=== PATIENT | male | born 2000 | race Hispanic/Latino ===

== ENCOUNTER 2023-02-28 11:35 | Emergency (ER) | payer SELFPAY ==
[2023-02-28] MEDS ORDERED: Sodium Chloride 0.9% 1000 ML 1,000 ML ONE ×2 (12:23→13:36)
[2023-02-28] MEDS: Sodium Chloride 0.9% 1000 ML 1,000 ML IV STA ×2 (12:26→13:38)
[2023-02-28 12:45] LABS: Absolute Neutrophil Ct (ANC) 4.78 x10^3/uL (1.4-6.9); BASOPHIL % 0.9 % (0.0-0.4); Basophil (Absolute #) 0.07 x10^3/uL (0-0.4); Eosinophil % 2.6 % (0.00-5.0); Eosinophil (Absolute #) 0.21 x10^3/uL (0-0.5); Hematocrit 44.3 % (42-50); Hemoglobin 15.1 g/dL (12.5-18.0); IMMATURE GRAN # 0.04 x10^3u/L (0.00-0.03); IMMATURE GRAN % 0.5 % (0.00-0.4); Lymphocyte (Absolute #) 2.37 x10^3/uL (1.0-4.6); Lymphocytes % 29.4 % (24.0-44.0); Mean Cell Volume 81.7 fL (78-100); Mean Corpuscular Hemoglobin 27.9 pg (26-32); Mean Corpuscular Hgb Concent. 34.1 g/dL (32-36); Mean Platelet Volume 10.9 fL (7.5-11.0); Monocyte (Absolute #) 0.59 x10^3/uL (0.0-1.3); Monocytes % 7.3 % (0.0-12.0); Neutrophil % 59.3 % (36.0-66.0); Platelet Count 238 x10^3/uL (150-450); Red Blood Count 5.42 x10^6/uL (4.1-5.6); Red Cell Distribution Width 13.4 % (11.5-14.0); White Blood Count 8.1 x10^3/uL (4.0-10.5)
[2023-02-28 12:51] LABS: Appearance Clear (Clear); Bacteria None Seen /HPF (None Seen); Bilirubin Negative (Negative); Blood Negative (Negative); Epithelial Cells None Seen /HPF (None Seen); Glucose, Urine >=1000 mg/dL (Negative); Hyaline Casts NONE SEEN /LPF (0-2); Ketones 40 (Negative); Leukocyte Esterase Negative (Negative); Nitrite Negative (Negative); Ph 5.5 (4.6-8.0); Protein,Urine Dip 30 (Negative); RBC 0-2 /HPF (0-5); Specific Gravity >=1.030 (1.005-1.030); Urobilinogen 0.2 mg/dL (0.2)
[2023-02-28 12:58] LABS: ALBUMIN 4.7 g/dL (3.5-5.0); ALKALINE PHOSPHATASE 197 U/L (38-126); ANION GAP 16.3 MEQ/L (5-15); BLOOD UREA NITROGEN 9 mg/dL (9-20); CHLORIDE 97 mmol/L (98-107); Calcium 9.6 mg/dL (8.4-10.2); Carbon Dioxide 29 mmol/L (22-30); Creatinine 1 0.77 mg/dL (0.66-1.25); EST GLOMERULAR FILTRATION RATE > 60.0 ML/MIN; Glucose 370 mg/dL (74-106); Potassium 4.1 mmol/L (3.5-5.1); SGOT/AST 164 U/L (17-59); SGPT/ALT 350 U/L (0-50); SODIUM 138 mmol/L (137-145); Total Protein 8.2 g/dL (6.3-8.2)
[2023-02-28 13:13] LABS: ADD URINE CULTURE? NO (NO)
[2023-02-28 13:32] VITALS: RESP 20; O2SAT 98
--- NOTE | 2023-02-28 14:20 | ERPHSYRPT ---
- History of Present Illness Time Seen by Provider: 02/28/23 14:14 Source: patient Exam Limitations: no limitations Patient Subjective Stated Complaint: Pt states "I am peeing allot, my vision is blurry, I am tired and I am thirsty." Triage Nursing Assessment: Pt presnted alert and oriented X 3, skin pwd. Pt ambulates with an upright steady gait, able to speak in clear full sentences pt in no apaprent respiratory distress. Physician History: Patient is a 22-year-old male presents to our ED accompanied by a friend for evaluation of slightly blurred vision polyuria and polydipsia. Patient states he is from [place]. He speaks primarily Swiss. He does not understand or speak Pashto. Patient states symptoms started 2 week ago. Symptoms have been constant. Symptoms are moderate in intensity. No specific worsening or improving factors. Patient denies pain. Patient states he believes he is diabetic. He has never been officially diagnosed however. Patient voices no other complaints or concerns at this time. Portions of this note were created with voice recognition technology. There may be grammatical, spelling, punctuation or sound alike errors Timing/Duration: week(s) Severity: mild Modifying Factors: Improves With: nothing Associated Symptoms: denies symptoms Allergies/Adverse Reactions: No Known Drug Allergies Allergy (Verified 02/28/23 12:10) Hx Tetanus, Diphtheria Vaccination/Date Given: No Hx Influenza Vaccination/Date Given: No Hx Pneumococcal Vaccination/Date Given: No Immunizations Up to Date: No Travel Risk - International Travel Have you traveled outside of the country in past 3 weeks: No - Coronavirus Screening Are you exhibiting any of the following symptoms?: No Close contact with a COVID-19 positive Pt in past 14-21 Days: No - Vaccine Status Have you recieved a Covid-19 vaccination: No - Review of Systems Constitutional: No Symptoms, No Fever, No Chills Eyes: No Symptoms Ears, Nose, & Throat: No Symptoms Respiratory: No Symptoms, No Cough, No Dyspnea Cardiac: No Symptoms, No Chest Pain, No Edema, No Syncope Abdominal/Gastrointestinal: No Symptoms, No Abdominal Pain, No Nausea, No Vomiting, No Diarrhea Genitourinary Symptoms: No Symptoms, No Dysuria Musculoskeletal: No Symptoms, No Back Pain, No Neck Pain Skin: No Symptoms, No Rash Neurological: No Symptoms, No Dizziness, No Focal Weakness, No Sensory Changes Psychological: No Symptoms Endocrine: No Symptoms Hematologic/Lymphatic: No Symptoms Immunological/Allergic: No Symptoms All Other Systems: Reviewed and Negative - Past Medical History Pertinent Past Medical History: No - Past Surgical History Past Surgical History: No - Social History Smoking Status: Current every day smoker How long have you smoked: 2 years Exposure to second hand smoke: Yes Drug Use: none Patient Lives Alone: No - Nursing Vital Signs Nursing Vital Signs: Initial Vital Signs Temperature 97.2 F 02/28/23 12:04 Pulse Rate 60 02/28/23 12:04 Respiratory Rate 22 02/28/23 12:04 Blood Pressure 142/97 02/28/23 12:04 O2 Sat by Pulse Oximetry 96 02/28/23 12:04 Pain Scale Pain Intensity 0 - Physical Exam General Appearance: no apparent distress, alert Eye Exam: PERRL/EOMI, eyes nml inspection Ears, Nose, Throat Exam: normal ENT inspection, TMs normal, pharynx normal, moist mucous membranes Neck Exam: normal inspection, non-tender, supple, full range of motion Respiratory Exam: normal breath sounds, lungs clear, No respiratory distress Cardiovascular Exam: regular rate/rhythm, normal heart sounds, normal peripheral pulses Gastrointestinal/Abdomen Exam: soft, normal bowel sounds, No tenderness, No mass Back Exam: normal inspection, normal range of motion, No CVA tenderness, No vertebral tenderness Extremity Exam: normal inspection, normal range of motion, pelvis stable Neurologic Exam: alert, oriented x 3, cooperative, normal mood/affect, nml cerebellar function, nml station & gait, sensation nml, No motor deficits Skin Exam: normal color, warm, dry, No rash Lymphatic Exam: No adenopathy SpO2 Interpretation: normal SpO2: 98 O2 Delivery: Room Air - Course Nursing assessment & vital signs reviewed: Yes Ordered Tests: Active Orders 24 hr Category Date Time Status Oyster 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 STAT Care 02/28/23 12:19 Active IV Insertion STAT Care 02/28/23 12:18 Active Pulse Oximetry (ED) STAT Care 02/28/23 12:18 Active CBC W DIFF Stat Lab 02/28/23 12:40 Completed CMP Stat Lab 02/28/23 12:40 Completed CMP Stat Lab 02/28/23 15:04 Completed LIPASE Stat Lab 02/28/23 12:40 Completed POCT GLUCOSE Stat Lab 02/28/23 12:07 Completed POCT GLUCOSE Stat Lab 02/28/23 14:47 Completed TROPONIN Q4H Lab 02/28/23 12:40 Completed TROPONIN Q4H Lab 02/28/23 16:30 Ordered TROPONIN Q4H Lab 02/28/23 20:30 Ordered UA W/RFX UR CULTURE Stat Lab 02/28/23 12:20 Completed VBG [VENOUS BLOOD GAS] Stat Lab 02/28/23 12:40 Completed Medication Summary Discontinued Medications Generic Name Dose Route Start Last Admin Trade Name Lisa PRN Reason Stop Dose Admin Sodium Chloride 1,000 mls @ 999 mls/hr 02/28/23 12:18 02/28/23 13:29 Sodium Chloride 0.9% 1000 Ml IV 02/28/23 13:18 Infused .Q1H1M STA Infusion Sodium Chloride Confirm 02/28/23 12:23 Sodium Chloride 0.9% 1000 Ml Administered 02/28/23 12:24 Dose 1,000 mls @ ud .ROUTE .STK-MED ONE Sodium Chloride 1,000 mls @ 999 mls/hr 02/28/23 13:35 02/28/23 14:46 Sodium Chloride 0.9% 1000 Ml IV 02/28/23 14:35 Infused .Q1H1M STA Infusion Sodium Chloride Confirm 02/28/23 13:36 Sodium Chloride 0.9% 1000 Ml Administered 02/28/23 13:37 Dose 1,000 mls @ ud .ROUTE .STK-MED ONE Lab/Rad Data: Laboratory Result Diagrams 02/28/23 12:40 02/28/23 15:04 Laboratory Results 02/28/23 02/28/23 02/28/23 Range/Units 15:04 14:47 12:40 WBC (4.0-10.5) x10^3/uL RBC (4.1-5.6) x10^6/uL Hgb (12.5-18.0) g/dL Hct (42-50) % MCV (78-100) fL MCH (26-32) pg MCHC (32-36) g/dL RDW (11.5-14.0) % Plt Count (150-450) x10^3/uL MPV (7.5-11.0) fL Gran % (36.0-66.0) % Immature Gran % (Auto) (0.00-0.4) % Nucleat RBC Rel Count (0.00-0.1) % Eos # (Auto) (0-0.5) x10^3/uL Immature Gran # (Auto) (0.00-0.03) x10^3u/L Absolute Lymphs (auto) (1.0-4.6) x10^3/uL Absolute Monos (auto) (0.0-1.3) x10^3/uL Absolute Nucleated RBC (0.00-0.01) x10^3u/L Lymphocytes % (24.0-44.0) % Monocytes % (0.0-12.0) % Eosinophils % (0.00-5.0) % Basophils % (0.0-0.4) % Absolute Granulocytes (1.4-6.9) x10^3/uL Basophils # (0-0.4) x10^3/uL pO2/FiO2 Ratio 21.0 % VBG pH 7.41 (7.32-7.42) VBG pCO2 at Pat Temp 55 (42-55) mm/Hg VBG pO2 at Pat Temp 28 (25-40) mm/Hg VBG HCO3 34.9 H* (22-28) meq/L VBG O2 Sat (Marcial) 37.5 L (95-100) VBG Base Excess 8.1 H (-2.0-2.0) VBG Hemoglobin 15.7 VBG Carboxyhemoglobin 1.4 (0.0-6.9) % T HGB POC Potassium 5.1 (3.5-5.1) Sodium 137 (137-145) mmol/L Potassium 4.0 (3.5-5.1) mmol/L Chloride 103 (98-107) mmol/L Carbon Dioxide 23 (22-30) mmol/L Anion Gap 14.9 (5-15) MEQ/L BUN 8 L (9-20) mg/dL Creatinine 0.70 (0.66-1.25) mg/dL Estimated GFR > 60.0 ML/MIN Glucose 278 H (74-106) mg/dL POC Glucometer 247 H (74 to 106) mg/dL Calcium 8.4 (8.4-10.2) mg/dL Total Bilirubin 1.30 (0.2-1.3) mg/dL AST 191 H (17-59) U/L ALT 335 H (0-50) U/L Alkaline Phosphatase 163 H (38-126) U/L Troponin I (0.000-0.034) ng/mL Serum Total Protein 7.3 (6.3-8.2) g/dL Albumin 4.2 (3.5-5.0) g/dL Lipase (23-300) U/L Urine Color (Yellow) Urine Appearance (Clear) Urine pH (4.6-8.0) Ur Specific Thurston (1.005-1.030) Urine Protein (Negative) Urine Glucose (UA) (Negative) mg/dL Urine Ketones (Negative) Urine Blood (Negative) Urine Nitrite (Negative) Urine Bilirubin (Negative) Urine Urobilinogen (0.2) mg/dL Ur Leukocyte Esterase (Negative) U Hyaline Cast (Auto) (0-2) /LPF Urine Microscopic RBC (0-5) /HPF Urine Microscopic WBC (0-5) /HPF Ur Epithelial Cells (None Seen) /HPF Urine Bacteria (None Seen) /HPF Urine Culture Reflexed (NO) 02/28/23 02/28/23 02/28/23 Range/Units 12:40 12:40 12:40 WBC (4.0-10.5) x10^3/uL RBC (4.1-5.6) x10^6/uL Hgb (12.5-18.0) g/dL Hct (42-50) % MCV (78-100) fL MCH (26-32) pg MCHC (32-36) g/dL RDW (11.5-14.0) % Plt Count (150-450) x10^3/uL MPV (7.5-11.0) fL Gran % (36.0-66.0) % Immature Gran % (Auto) (0.00-0.4) % Nucleat RBC Rel Count (0.00-0.1) % Eos # (Auto) (0-0.5) x10^3/uL Immature Gran # (Auto) (0.00-0.03) x10^3u/L Absolute Lymphs (auto) (1.0-4.6) x10^3/uL Absolute Monos (auto) (0.0-1.3) x10^3/uL Absolute Nucleated RBC (0.00-0.01) x10^3u/L Lymphocytes % (24.0-44.0) % Monocytes % (0.0-12.0) % Eosinophils % (0.00-5.0) % Basophils % (0.0-0.4) % Absolute Granulocytes (1.4-6.9) x10^3/uL Basophils # (0-0.4) x10^3/uL pO2/FiO2 Ratio % VBG pH (7.32-7.42) VBG pCO2 at Pat Temp (42-55) mm/Hg VBG pO2 at Pat Temp (25-40) mm/Hg VBG HCO3 (22-28) meq/L VBG O2 Sat (Marcial) (95-100) VBG Base Excess (-2.0-2.0) VBG Hemoglobin VBG Carboxyhemoglobin (0.0-6.9) % T HGB POC Potassium (3.5-5.1) Sodium 138 (137-145) mmol/L Potassium 4.1 (3.5-5.1) mmol/L Chloride 97 L (98-107) mmol/L Carbon Dioxide 29 (22-30) mmol/L Anion Gap 16.3 H (5-15) MEQ/L BUN 9 (9-20) mg/dL Creatinine 0.77 (0.66-1.25) mg/dL Estimated GFR > 60.0 ML/MIN Glucose 370 H (74-106) mg/dL POC Glucometer (74 to 106) mg/dL Calcium 9.6 (8.4-10.2) mg/dL Total Bilirubin 1.30 (0.2-1.3) mg/dL AST 164 H (17-59) U/L ALT 350 H (0-50) U/L Alkaline Phosphatase 197 H (38-126) U/L Troponin I < 0.012 (0.000-0.034) ng/mL Serum Total Protein 8.2 (6.3-8.2) g/dL Albumin 4.7 (3.5-5.0) g/dL Lipase 52 (23-300) U/L Urine Color (Yellow) Urine Appearance (Clear) Urine pH (4.6-8.0) Ur Specific Thurston (1.005-1.030) Urine Protein (Negative) Urine Glucose (UA) (Negative) mg/dL Urine Ketones (Negative) Urine Blood (Negative) Urine Nitrite (Negative) Urine Bilirubin (Negative) Urine Urobilinogen (0.2) mg/dL Ur Leukocyte Esterase (Negative) U Hyaline Cast (Auto) (0-2) /LPF Urine Microscopic RBC (0-5) /HPF Urine Microscopic WBC (0-5) /HPF Ur Epithelial Cells (None Seen) /HPF Urine Bacteria (None Seen) /HPF Urine Culture Reflexed (NO) 02/28/23 02/28/23 02/28/23 Range/Units 12:40 12:20 12:07 WBC 8.1 (4.0-10.5) x10^3/uL RBC 5.42 (4.1-5.6) x10^6/uL Hgb 15.1 (12.5-18.0) g/dL Hct 44.3 (42-50) % MCV 81.7 (78-100) fL MCH 27.9 (26-32) pg MCHC 34.1 (32-36) g/dL RDW 13.4 (11.5-14.0) % Plt Count 238 (150-450) x10^3/uL MPV 10.9 (7.5-11.0) fL Gran % 59.3 (36.0-66.0) % Immature Gran % (Auto) 0.5 H (0.00-0.4) % Nucleat RBC Rel Count 0.0 (0.00-0.1) % Eos # (Auto) 0.21 (0-0.5) x10^3/uL Immature Gran # (Auto) 0.04 H (0.00-0.03) x10^3u/L Absolute Lymphs (auto) 2.37 (1.0-4.6) x10^3/uL Absolute Monos (auto) 0.59 (0.0-1.3) x10^3/uL Absolute Nucleated RBC 0.00 (0.00-0.01) x10^3u/L Lymphocytes % 29.4 (24.0-44.0) % Monocytes % 7.3 (0.0-12.0) % Eosinophils % 2.6 (0.00-5.0) % Basophils % 0.9 (0.0-0.4) % Absolute Granulocytes 4.78 (1.4-6.9) x10^3/uL Basophils # 0.07 (0-0.4) x10^3/uL pO2/FiO2 Ratio % VBG pH (7.32-7.42) VBG pCO2 at Pat Temp (42-55) mm/Hg VBG pO2 at Pat Temp (25-40) mm/Hg VBG HCO3 (22-28) meq/L VBG O2 Sat (Marcial) (95-100) VBG Base Excess (-2.0-2.0) VBG Hemoglobin VBG Carboxyhemoglobin (0.0-6.9) % T HGB POC Potassium (3.5-5.1) Sodium (137-145) mmol/L Potassium (3.5-5.1) mmol/L Chloride (98-107) mmol/L Carbon Dioxide (22-30) mmol/L Anion Gap (5-15) MEQ/L BUN (9-20) mg/dL Creatinine (0.66-1.25) mg/dL Estimated GFR ML/MIN Glucose (74-106) mg/dL POC Glucometer 325 H (74 to 106) mg/dL Calcium (8.4-10.2) mg/dL Total Bilirubin (0.2-1.3) mg/dL AST (17-59) U/L ALT (0-50) U/L Alkaline Phosphatase (38-126) U/L Troponin I (0.000-0.034) ng/mL Serum Total Protein (6.3-8.2) g/dL Albumin (3.5-5.0) g/dL Lipase (23-300) U/L Urine Color Yellow (Yellow) Urine Appearance Clear (Clear) Urine pH 5.5 (4.6-8.0) Ur Specific Thurston >=1.030 A (1.005-1.030) Urine Protein 30 (Negative) Urine Glucose (UA) >=1000 A (Negative) mg/dL Urine Ketones 40 A (Negative) Urine Blood Negative (Negative) Urine Nitrite Negative (Negative) Urine Bilirubin Negative (Negative) Urine Urobilinogen 0.2 (0.2) mg/dL Ur Leukocyte Esterase Negative (Negative) U Hyaline Cast (Auto) NONE SEEN (0-2) /LPF Urine Microscopic RBC 0-2 (0-5) /HPF Urine Microscopic WBC 3-5 (0-5) /HPF Ur Epithelial Cells None Seen (None Seen) /HPF Urine Bacteria None Seen (None Seen) /HPF Urine Culture Reflexed NO (NO) - Progress Progress: improved Progress Note: Patient is a 22-year-old male presents to our ED for evaluation of polyuria polydipsia and slight blurred vision. Symptoms have been ongoing for approximately 2 weeks. Patient states he is from [place]. Patient speaks primarily Swiss. Dr. Brito is fluent in Swiss. Test ordered include CBC, CMP lipase. Troponin UA VBG. Glucose initially 325. After 2 L fluid glucose down to 247. Patient asymptomatic. Mild elevated liver enzymes. Normal pH. Patient received 2 L normal saline and a dose of metformin in our ED. A prescription for metformin for the patient's pharmacy. Patient to take 500 mg daily at least until he sees his primary care doctor. Patient given referral to Dr. Larsen. Patient states he ready for discharge. Portions of this note were created with voice recognition technology. There may be grammatical, spelling, punctuation or sound alike errors Complexity of problems addressed as moderate acute complicated Complex data reviewed and analyzed is moderate. Test ordered. Test reviewed and analyzed. Clinical correlation made between results and history and physical exam. Patient received 2 L normal saline. Glucose decreased. Patient given a dose of metformin in our ED. A prescription for the same was forwarded to patient's pharmacy. Anion gap resolved after 2 L normal saline. Risk of complication and or risk morbidity/mortality of patient management is moderate. Patient received prescription for metformin. Patient given referral to primary care doctor. Portions of this note were created with voice recognition technology. There may be grammatical, spelling, punctuation or sound alike errors No social determinants of health present to impede follow-up. Patient stable. Vitals within normal limits. Plan of care established for shared decision making. Patient voices no other complaints or concerns at this time. Patient educated on diet and the importance of follow-up. 02/28/23 15:45 02/28/23 15:56 Counseled pt/family regarding: lab results, diagnosis, need for follow-up - Departure Departure Disposition: Home Clinical Impression: Hyperglycemia, Glucosuria, Dehydration, Transaminitis, Elevated alkaline phosphatase level Condition: Stable Critical Care Time: No Referrals: DOCTOR,NO FAMILY [Primary Care Provider] - Follow up/PCP as directed PHILLIP LARSEN MD [ACTIVE STAFF] - Follow up/PCP as directed Additional Instructions: Discharge/Care Plan RONI RIVERA was seen on 02/28/23 in the Emergency Room. The patient was counseled regarding Diagnosis,Lab results, Imaging studies, need for follow up and when to return to the Emergency Room. Prescriptions given: Discharge Note I have spoken with the patient and/or caregivers. I have explained the patient's condition, diagnosis and treatment plan based on the information available to me at this time. I have answered the patient's and/or caregiver's questions and addressed any concerns. The patient and/or caregivers have as good understanding of the patient's diagnosis, condition and treatment plan as can be expected at this point. The vital signs have been stable. The patient's condition is stable and appropriate for discharge from the emergency department. The patient will pursue further outpatient evaluation with the primary care physician or other designated or consulting physician as outlined in the discharge instructions. The patient and/or caregivers are agreeable to this plan of care and follow-up instructions have been explained in detail. The patient and/or caregivers have received these instruction. The patient/and or caregivers are aware that any significant change in condition or worsening of symptoms should prompt an immediate return to this or the closest emergency department or call 911. Prescriptions: Metformin HCl 500 mg [Glucophage 500 MG] 500 mg PO DAILY 7 Days #7 tablet
[2023-02-28 14:31] LABS: VBG BASE EXCESS 8.1 (-2.0-2.0); VBG CARBOXYHEMOGLOBIN 1.4 % T HGB (0.0-6.9); VBG HCO3- 34.9 meq/L (22-28); VBG HEMOGLOBIN 15.7; VBG O2 SATURATION 37.5 (95-100); VBG POTASSIUM 5.1 (3.5-5.1); VBG pH 7.41 (7.32-7.42)
[2023-02-28 15:19] LABS: ALBUMIN 4.2 g/dL (3.5-5.0); ALKALINE PHOSPHATASE 163 U/L (38-126); ANION GAP 14.9 MEQ/L (5-15); BLOOD UREA NITROGEN 8 mg/dL (9-20); CHLORIDE 103 mmol/L (98-107); Calcium 8.4 mg/dL (8.4-10.2); Carbon Dioxide 23 mmol/L (22-30); EST GLOMERULAR FILTRATION RATE > 60.0 ML/MIN; Glucose 278 mg/dL (74-106); SGOT/AST 191 U/L (17-59); SGPT/ALT 335 U/L (0-50); SODIUM 137 mmol/L (137-145); Total Protein 7.3 g/dL (6.3-8.2)
[2023-02-28] MEDS: Glucophage 500 MG PO STA (15:52)
[2023-02-28 16:11] VITALS: BP 134/82; PULSE 98; TEMP 97.4
== END 2023-02-28 16:10 | disposition home or self-care (01) ==
LOC: ED 11:35
DX: R73.9 Hyperglycemia, unspecified (principal); R81 Glycosuria; E86.0 Dehydration; R74.01 Elevation of levels of liver transaminase levels; R74.8 Abnormal levels of other serum enzymes; R35.89 Other polyuria; R63.1 Polydipsia; H53.8 Other visual disturbances; Z28.310 Unvaccinated for COVID-19; Z72.0 Tobacco use
CPT/HCPCS: 36000; 36415; 80053; 81001; 82805; 82947; 83690; 84484; 85025; 94760; 96360; 96361; 99284; A9270-GY

== ENCOUNTER 2023-10-13 10:32 | Observation (INO) | payer SELFPAY ==
--- NOTE | 2023-10-13 10:53 | ERPHSYRPT ---
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 He is noncompliant with food and his medication. Patient is a daily smoker cigarettes. Yesterday, he began noticing some dizziness and weakness and has been drinking lots of water. His symptoms were worse this morning. He does not have a headache. He does not have chest pain. He does not have shortness of breath. He does not have abdominal pain. He has had no nausea vomiting or diarrhea symptoms. Severity: moderate Character of Deficits: none Deficits: no difficulties Baseline/Normal Cognition: alert oriented x 3 Current Cognition: alert oriented x 3 Baseline Gait: walks w/o assistance Associated Symptoms: weakness, other Allergies/Adverse Reactions: No Known Drug Allergies Allergy (Verified 10/13/23 10:50) Home Medications: No Reportable Medications [No Reported Medications] 10/13/23 [History] Hx Tetanus, Diphtheria Vaccination/Date Given: No Hx Influenza Vaccination/Date Given: No Hx Pneumococcal Vaccination/Date Given: No Travel Risk - International Travel Have you traveled outside of the country in past 3 weeks: No (Intermittent dizziness) - Emerging Infectious Disease Are you exhibiting symptoms associated with any current EIDs: No - Vaccine Status Hx Covid Vaccintation/Booster/Date Given: No - Review of Systems Constitutional: Weakness Eyes: No Symptoms Ears, Nose, & Throat: No Symptoms Respiratory: No Symptoms Cardiac: No Symptoms Abdominal/Gastrointestinal: No Symptoms Genitourinary Symptoms: No Symptoms Musculoskeletal: No Symptoms Skin: No Symptoms Neurological: Dizziness Psychological: No Symptoms Endocrine: No Symptoms Hematologic/Lymphatic: No Symptoms Immunological/Allergic: No Symptoms All Other Systems: Reviewed and Negative - Past Medical History Pertinent Past Medical History: No - Past Surgical History Past Surgical History: No - Social History Smoking Status: Current every day smoker How long have you smoked: 2 years Exposure to second hand smoke: Yes Drug Use: none Patient Lives Alone: No - Nursing Vital Signs Nursing Vital Signs: Initial Vital Signs Temperature 97.6 F 10/13/23 10:52 Pulse Rate 86 10/13/23 10:52 Respiratory Rate 20 10/13/23 10:52 Blood Pressure 153/72 10/13/23 10:52 O2 Sat by Pulse Oximetry 98 10/13/23 10:52 Pain Scale Pain Intensity 0 - Deuce Coma Scale Best Eye Response ([place]): (4) open spontaneously Best Verbal Response (Deuce): (5) oriented Best Motor Response ([place]): (6) obeys commands Deuce Total: 15 - Physical Exam General Appearance: no apparent distress, alert Eye Exam: bilateral eye: normal inspection, PERRL, EOMI Ears, Nose, Throat Exam: dry mucous membranes Neck Exam: normal inspection, non-tender, supple, full range of motion Respiratory: normal breath sounds, lungs clear, airway intact, No chest tenderness, No respiratory distress Cardiovascular: regular rate/rhythm, normal heart sounds, normal peripheral pulses Gastrointestinal: soft, normal bowel sounds, No tenderness Rectal Exam: not done Back Exam: normal inspection, normal range of motion, No CVA tenderness, No vertebral tenderness Extremity Exam: normal inspection, normal range of motion, pelvis stable Mental Status: alert, oriented x 3, 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 No comparison twelve-lead EKG available.) Ordered Tests: Active Orders 24 hr Category Date Time Status EKG-ER Only STAT Care 10/13/23 11:20 Active IV Insertion STAT Care 10/13/23 11:20 Active IV Insertion-2nd Peripheral STAT Care 10/13/23 12:34 Active POCT Glucose Check STAT Care 10/13/23 13:40 Active Pulse Oximetry (ED) STAT Care 10/13/23 11:20 Active CBC W DIFF Stat Lab 10/13/23 11:18 Completed CMP Stat Lab 10/13/23 11:18 Completed CMP Stat Lab 10/13/23 17:20 Completed CULTURE,URINE Stat Lab 10/13/23 11:29 Received CULTURE,URINE Stat Lab 10/13/23 16:30 Received ETHYL ALCOHOL Stat Lab 10/13/23 11:18 Completed Lactic Acid Urgent Lab 10/13/23 11:35 Completed MAGNESIUM Stat Lab 10/13/23 11:18 Completed POCT GLUCOSE Stat Lab 10/13/23 10:57 Completed POCT GLUCOSE Stat Lab 10/13/23 13:38 Completed POCT GLUCOSE Stat Lab 10/13/23 14:55 Completed UA W/RFX UR CULTURE Stat Lab 10/13/23 11:29 Completed UA W/RFX UR CULTURE Stat Lab 10/13/23 16:30 Completed UA W/RFX UR CULTURE Stat Lab 10/13/23 17:19 Completed VBG [VENOUS BLOOD GAS] Stat Lab 10/13/23 11:56 Completed VENOUS BLOOD GAS Stat Lab 10/13/23 15:05 Completed Transfer Order Routine Transfer 10/13/23 Ordered Medication Summary Discontinued Medications Generic Name Dose Route Start Last Admin Trade Name Freq PRN Reason Stop Dose Admin Sodium Chloride 1,000 mls @ 999 mls/hr 10/13/23 11:20 10/13/23 12:33 Sodium Chloride 0.9% 1000 Ml IV 10/13/23 12:20 Infused .Q1H1M STA Infusion Sodium Chloride Confirm 10/13/23 11:30 Sodium Chloride 0.9% 1000 Ml Administered 10/13/23 11:31 Dose 1,000 mls @ ud .ROUTE .STK-MED ONE Lactated Ringer's 1,000 mls @ 999 mls/hr 10/13/23 12:28 10/13/23 13:42 Lactated Ringers IV 10/13/23 13:28 Infused .Q1H1M ONE Infusion Lactated Ringer's Confirm 10/13/23 12:36 Lactated Ringers Administered 10/13/23 12:37 Dose 1,000 mls @ ud IV .STK-MED ONE Sodium Chloride 1,000 mls @ 999 mls/hr 10/13/23 13:40 10/13/23 14:56 Sodium Chloride 0.9% 1000 Ml IV 10/13/23 14:40 Infused .Q1H1M STA Infusion Sodium Chloride Confirm 10/13/23 13:54 Sodium Chloride 0.9% 1000 Ml Administered 10/13/23 13:55 Dose 1,000 mls @ ud .ROUTE .STK-MED ONE Lactated Ringer's 500 mls @ 500 mls/hr 10/13/23 15:47 10/13/23 17:01 Lactated Ringers IV 10/13/23 16:46 Infused .Q1H ONE Infusion Lactated Ringer's Confirm 10/13/23 15:51 Lactated Ringers Administered 10/13/23 15:52 Dose 1,000 mls @ ud IV .STK-MED ONE Insulin Human Regular 4 unit 10/13/23 11:57 10/13/23 12:03 Insulin Regular, Human 1 Unit IV 10/13/23 11:58 4 unit STAT ONE Administration Insulin Human Regular Confirm 10/13/23 12:00 Insulin Regular, Human 1 Unit Administered 10/13/23 12:01 Dose 4 unit .ROUTE .STK-MED ONE Sodium Bicarbonate 50 meq 10/13/23 12:15 10/13/23 12:39 Sodium Bicarbonate 1 Meq/Ml 50ml Syringe IV 10/13/23 12:16 50 meq STAT ONE Administration Sodium Bicarbonate Confirm 10/13/23 12:36 Sodium Bicarbonate 1 Meq/Ml 50ml Syringe Administered 10/13/23 12:37 Dose 50 meq IV .STK-MED ONE Lab/Rad Data: Laboratory Result Diagrams 10/13/23 11:18 10/13/23 17:20 Laboratory Results 10/13/23 10/13/23 10/13/23 Range/Units 17:20 17:19 16:30 WBC (4.0-10.5) x10^3/uL RBC (4.1-5.6) x10^6/uL Hgb (12.5-18.0) g/dL Hct (42-50) % MCV (78-100) fL MCH (26-32) pg MCHC (32-36) g/dL RDW (11.5-14.0) % Plt Count (150-450) x10^3/uL MPV (7.5-11.0) fL Gran % (36.0-66.0) % Immature Gran % (Auto) (0.00-0.4) % Nucleat RBC Rel Count (0.00-0.1) % Eos # (Auto) (0-0.5) x10^3/uL Immature Gran # (Auto) (0.00-0.03) x10^3u/L Absolute Lymphs (auto) (1.0-4.6) x10^3/uL Absolute Monos (auto) (0.0-1.3) x10^3/uL Absolute Nucleated RBC (0.00-0.01) x10^3u/L Lymphocytes % (24.0-44.0) % Monocytes % (0.0-12.0) % Eosinophils % (0.00-5.0) % Basophils % (0.0-0.4) % Absolute Granulocytes (1.4-6.9) x10^3/uL Basophils # (0-0.4) x10^3/uL pO2/FiO2 Ratio % VBG pH (7.32-7.42) VBG pCO2 at Pat Temp (42-55) mm/Hg VBG pO2 at Pat Temp (25-40) mm/Hg VBG HCO3 (22-28) meq/L VBG O2 Sat (Marcial) (95-100) VBG Base Excess (-2.0-2.0) VBG Hemoglobin VBG Carboxyhemoglobin (0.0-6.9) % T HGB POC Potassium (3.5-5.1) Sodium 137 (135-145) mmol/L Sodium Direct (138-146) mmol/L Potassium 3.4 L (3.5-5.1) mmol/L Chloride 106 (98-107) mmol/L Carbon Dioxide 12 L* (22-30) mmol/L Anion Gap 22.3 H (5-15) MEQ/L BUN 6 L (9-20) mg/dL Venous BUN (8-26) mg/dL Creatinine 0.78 (0.66-1.25) mg/dL Estimated GFR 127.7 ML/MIN Glucose 256 H (74-106) mg/dL POC Glucometer (74 to 106) mg/dL Lactic Acid (0.4-2.0) Calcium 8.2 L (8.4-10.2) mg/dL Ionized Calcium (1.12-1.32) mmol/L Magnesium (1.6-2.3) mg/dL Total Bilirubin 1.60 H (0.2-1.3) mg/dL AST 23 (17-59) U/L ALT 44 (0-50) U/L Alkaline Phosphatase 140 H (38-126) U/L Serum Total Protein 7.0 (6.3-8.2) g/dL Albumin 4.1 (3.5-5.0) g/dL Urine Color Yellow Yellow (Yellow) Urine Appearance Clear Clear (Clear) Urine pH 5.5 5.5 (4.6-8.0) Ur Specific [place] >=1.030 A >=1.030 A (1.005-1.030) Urine Protein 30 30 (Negative) Urine Glucose (UA) >=1000 A >=1000 A (Negative) mg/dL Urine Ketones >=160 A >=160 A (Negative) Urine Blood Small A Small A (Negative) Urine Nitrite Negative Negative (Negative) Urine Bilirubin Negative Negative (Negative) Urine Urobilinogen 0.2 0.2 (0.2) mg/dL Ur Leukocyte Esterase Negative Negative (Negative) U Hyaline Cast (Auto) 11-20 6-10 A (0-2) /LPF Urine Microscopic RBC 0-2 0-2 (0-5) /HPF Urine Microscopic WBC 0-2 0-2 (0-5) /HPF Ur Epithelial Cells None Seen None Seen (None Seen) /HPF Urine Bacteria None Seen None Seen (None Seen) /HPF Granular Casts (None Seen) /LPF Urine Culture Reflexed NO YES (NO) Ethyl Alcohol (0-10) mg/dL 10/13/23 10/13/23 10/13/23 Range/Units 15:05 15:05 14:55 WBC (4.0-10.5) x10^3/uL RBC (4.1-5.6) x10^6/uL Hgb (12.5-18.0) g/dL Hct (42-50) % MCV (78-100) fL MCH (26-32) pg MCHC (32-36) g/dL RDW (11.5-14.0) % Plt Count (150-450) x10^3/uL MPV (7.5-11.0) fL Gran % (36.0-66.0) % Immature Gran % (Auto) (0.00-0.4) % Nucleat RBC Rel Count (0.00-0.1) % Eos # (Auto) (0-0.5) x10^3/uL Immature Gran # (Auto) (0.00-0.03) x10^3u/L Absolute Lymphs (auto) (1.0-4.6) x10^3/uL Absolute Monos (auto) (0.0-1.3) x10^3/uL Absolute Nucleated RBC (0.00-0.01) x10^3u/L Lymphocytes % (24.0-44.0) % Monocytes % (0.0-12.0) % Eosinophils % (0.00-5.0) % Basophils % (0.0-0.4) % Absolute Granulocytes (1.4-6.9) x10^3/uL Basophils # (0-0.4) x10^3/uL pO2/FiO2 Ratio 21.0 % VBG pH 7.26 L (7.32-7.42) VBG pCO2 at Pat Temp 29 L (42-55) mm/Hg VBG pO2 at Pat Temp 28 (25-40) mm/Hg VBG HCO3 13.0 L* (22-28) meq/L VBG O2 Sat (Marcial) 47.2 L (95-100) VBG Base Excess -12.6 L (-2.0-2.0) VBG Hemoglobin 14.4 VBG Carboxyhemoglobin 2.1 (0.0-6.9) % T HGB POC Potassium 3.9 (3.5-5.1) Sodium (135-145) mmol/L Sodium Direct 137 L (138-146) mmol/L Potassium 3.7 (3.5-5.1) mmol/L Chloride 107 (98-107) mmol/L Carbon Dioxide 16 L (22-30) mmol/L Anion Gap (5-15) MEQ/L BUN (9-20) mg/dL Venous BUN 7 L (8-26) mg/dL Creatinine 0.6 (0.66-1.25) mg/dL Estimated GFR ML/MIN Glucose 259 H (74-106) mg/dL POC Glucometer 206 H (74 to 106) mg/dL Lactic Acid (0.4-2.0) Calcium (8.4-10.2) mg/dL Ionized Calcium 1.18 (1.12-1.32) mmol/L Magnesium (1.6-2.3) mg/dL Total Bilirubin (0.2-1.3) mg/dL AST (17-59) U/L ALT (0-50) U/L Alkaline Phosphatase (38-126) U/L Serum Total Protein (6.3-8.2) g/dL Albumin (3.5-5.0) g/dL Urine Color (Yellow) Urine Appearance (Clear) Urine pH (4.6-8.0) Ur Specific [place] (1.005-1.030) Urine Protein (Negative) Urine Glucose (UA) (Negative) mg/dL Urine Ketones (Negative) Urine Blood (Negative) Urine Nitrite (Negative) Urine Bilirubin (Negative) Urine Urobilinogen (0.2) mg/dL Ur Leukocyte Esterase (Negative) U Hyaline Cast (Auto) (0-2) /LPF Urine Microscopic RBC (0-5) /HPF Urine Microscopic WBC (0-5) /HPF Ur Epithelial Cells (None Seen) /HPF Urine Bacteria (None Seen) /HPF Granular Casts (None Seen) /LPF Urine Culture Reflexed (NO) Ethyl Alcohol (0-10) mg/dL 10/13/23 10/13/23 10/13/23 Range/Units 13:38 11:56 11:35 WBC (4.0-10.5) x10^3/uL RBC (4.1-5.6) x10^6/uL Hgb (12.5-18.0) g/dL Hct (42-50) % MCV (78-100) fL MCH (26-32) pg MCHC (32-36) g/dL RDW (11.5-14.0) % Plt Count (150-450) x10^3/uL MPV (7.5-11.0) fL Gran % (36.0-66.0) % Immature Gran % (Auto) (0.00-0.4) % Nucleat RBC Rel Count (0.00-0.1) % Eos # (Auto) (0-0.5) x10^3/uL Immature Gran # (Auto) (0.00-0.03) x10^3u/L Absolute Lymphs (auto) (1.0-4.6) x10^3/uL Absolute Monos (auto) (0.0-1.3) x10^3/uL Absolute Nucleated RBC (0.00-0.01) x10^3u/L Lymphocytes % (24.0-44.0) % Monocytes % (0.0-12.0) % Eosinophils % (0.00-5.0) % Basophils % (0.0-0.4) % Absolute Granulocytes (1.4-6.9) x10^3/uL Basophils # (0-0.4) x10^3/uL pO2/FiO2 Ratio 21.0 % VBG pH 7.18 L* (7.32-7.42) VBG pCO2 at Pat Temp 32 L (42-55) mm/Hg VBG pO2 at Pat Temp 38 (25-40) mm/Hg VBG HCO3 11.9 L* (22-28) meq/L VBG O2 Sat (Marcial) 62.7 L (95-100) VBG Base Excess -15.2 L (-2.0-2.0) VBG Hemoglobin 16.8 VBG Carboxyhemoglobin 3.4 (0.0-6.9) % T HGB POC Potassium 3.9 (3.5-5.1) Sodium (135-145) mmol/L Sodium Direct (138-146) mmol/L Potassium (3.5-5.1) mmol/L Chloride (98-107) mmol/L Carbon Dioxide (22-30) mmol/L Anion Gap (5-15) MEQ/L BUN (9-20) mg/dL Venous BUN (8-26) mg/dL Creatinine (0.66-1.25) mg/dL Estimated GFR ML/MIN Glucose (74-106) mg/dL POC Glucometer 284 H (74 to 106) mg/dL Lactic Acid 1.5 (0.4-2.0) Calcium (8.4-10.2) mg/dL Ionized Calcium (1.12-1.32) mmol/L Magnesium (1.6-2.3) mg/dL Total Bilirubin (0.2-1.3) mg/dL AST (17-59) U/L ALT (0-50) U/L Alkaline Phosphatase (38-126) U/L Serum Total Protein (6.3-8.2) g/dL Albumin (3.5-5.0) g/dL Urine Color (Yellow) Urine Appearance (Clear) Urine pH (4.6-8.0) Ur Specific [place] (1.005-1.030) Urine Protein (Negative) Urine Glucose (UA) (Negative) mg/dL Urine Ketones (Negative) Urine Blood (Negative) Urine Nitrite (Negative) Urine Bilirubin (Negative) Urine Urobilinogen (0.2) mg/dL Ur Leukocyte Esterase (Negative) U Hyaline Cast (Auto) (0-2) /LPF Urine Microscopic RBC (0-5) /HPF Urine Microscopic WBC (0-5) /HPF Ur Epithelial Cells (None Seen) /HPF Urine Bacteria (None Seen) /HPF Granular Casts (None Seen) /LPF Urine Culture Reflexed (NO) Ethyl Alcohol (0-10) mg/dL 10/13/23 10/13/23 10/13/23 Range/Units 11:29 11:18 11:18 WBC 10.4 (4.0-10.5) x10^3/uL RBC 5.90 H (4.1-5.6) x10^6/uL Hgb 16.4 (12.5-18.0) g/dL Hct 49.6 (42-50) % MCV 84.1 (78-100) fL MCH 27.8 (26-32) pg MCHC 33.1 (32-36) g/dL RDW 13.3 (11.5-14.0) % Plt Count 248 (150-450) x10^3/uL MPV 10.9 (7.5-11.0) fL Gran % 79.8 H (36.0-66.0) % Immature Gran % (Auto) 0.4 (0.00-0.4) % Nucleat RBC Rel Count 0.0 (0.00-0.1) % Eos # (Auto) 0.04 (0-0.5) x10^3/uL Immature Gran # (Auto) 0.04 H (0.00-0.03) x10^3u/L Absolute Lymphs (auto) 1.41 (1.0-4.6) x10^3/uL Absolute Monos (auto) 0.53 (0.0-1.3) x10^3/uL Absolute Nucleated RBC 0.00 (0.00-0.01) x10^3u/L Lymphocytes % 13.5 L (24.0-44.0) % Monocytes % 5.1 (0.0-12.0) % Eosinophils % 0.4 (0.00-5.0) % Basophils % 0.8 (0.0-0.4) % Absolute Granulocytes 8.34 H (1.4-6.9) x10^3/uL Basophils # 0.08 (0-0.4) x10^3/uL pO2/FiO2 Ratio % VBG pH (7.32-7.42) VBG pCO2 at Pat Temp (42-55) mm/Hg VBG pO2 at Pat Temp (25-40) mm/Hg VBG HCO3 (22-28) meq/L VBG O2 Sat (Marcial) (95-100) VBG Base Excess (-2.0-2.0) VBG Hemoglobin VBG Carboxyhemoglobin (0.0-6.9) % T HGB POC Potassium (3.5-5.1) Sodium 134 L (135-145) mmol/L Sodium Direct (138-146) mmol/L Potassium 3.9 (3.5-5.1) mmol/L Chloride 103 (98-107) mmol/L Carbon Dioxide 7 L* (22-30) mmol/L Anion Gap 28.3 H (5-15) MEQ/L BUN 9 (9-20) mg/dL Venous BUN (8-26) mg/dL Creatinine 0.90 (0.66-1.25) mg/dL Estimated GFR 122.3 ML/MIN Glucose 347 H (74-106) mg/dL POC Glucometer (74 to 106) mg/dL Lactic Acid (0.4-2.0) Calcium 9.4 (8.4-10.2) mg/dL Ionized Calcium (1.12-1.32) mmol/L Magnesium 2.0 (1.6-2.3) mg/dL Total Bilirubin 1.30 (0.2-1.3) mg/dL AST 23 (17-59) U/L ALT 54 H (0-50) U/L Alkaline Phosphatase 191 H (38-126) U/L Serum Total Protein 8.4 H (6.3-8.2) g/dL Albumin 4.9 (3.5-5.0) g/dL Urine Color Yellow (Yellow) Urine Appearance Clear (Clear) Urine pH 5.5 (4.6-8.0) Ur Specific [place] >=1.030 A (1.005-1.030) Urine Protein 100 A (Negative) Urine Glucose (UA) >=1000 A (Negative) mg/dL Urine Ketones >=160 A (Negative) Urine Blood Small A (Negative) Urine Nitrite Negative (Negative) Urine Bilirubin Negative (Negative) Urine Urobilinogen 0.2 (0.2) mg/dL Ur Leukocyte Esterase Negative (Negative) U Hyaline Cast (Auto) 0-2 (0-2) /LPF Urine Microscopic RBC 0-2 (0-5) /HPF Urine Microscopic WBC 0-2 (0-5) /HPF Ur Epithelial Cells None Seen (None Seen) /HPF Urine Bacteria None Seen (None Seen) /HPF Granular Casts 3-5 A (None Seen) /LPF Urine Culture Reflexed YES (NO) Ethyl Alcohol < 10 (0-10) mg/dL 10/13/23 Range/Units 10:57 WBC (4.0-10.5) x10^3/uL RBC (4.1-5.6) x10^6/uL Hgb (12.5-18.0) g/dL Hct (42-50) % MCV (78-100) fL MCH (26-32) pg MCHC (32-36) g/dL RDW (11.5-14.0) % Plt Count (150-450) x10^3/uL MPV (7.5-11.0) fL Gran % (36.0-66.0) % Immature Gran % (Auto) (0.00-0.4) % Nucleat RBC Rel Count (0.00-0.1) % Eos # (Auto) (0-0.5) x10^3/uL Immature Gran # (Auto) (0.00-0.03) x10^3u/L Absolute Lymphs (auto) (1.0-4.6) x10^3/uL Absolute Monos (auto) (0.0-1.3) x10^3/uL Absolute Nucleated RBC (0.00-0.01) x10^3u/L Lymphocytes % (24.0-44.0) % Monocytes % (0.0-12.0) % Eosinophils % (0.00-5.0) % Basophils % (0.0-0.4) % Absolute Granulocytes (1.4-6.9) x10^3/uL Basophils # (0-0.4) x10^3/uL pO2/FiO2 Ratio % VBG pH (7.32-7.42) VBG pCO2 at Pat Temp (42-55) mm/Hg VBG pO2 at Pat Temp (25-40) mm/Hg VBG HCO3 (22-28) meq/L VBG O2 Sat (Marcial) (95-100) VBG Base Excess (-2.0-2.0) VBG Hemoglobin VBG Carboxyhemoglobin (0.0-6.9) % T HGB POC Potassium (3.5-5.1) Sodium (135-145) mmol/L Sodium Direct (138-146) mmol/L Potassium (3.5-5.1) mmol/L Chloride (98-107) mmol/L Carbon Dioxide (22-30) mmol/L Anion Gap (5-15) MEQ/L BUN (9-20) mg/dL Venous BUN (8-26) mg/dL Creatinine (0.66-1.25) mg/dL Estimated GFR ML/MIN Glucose (74-106) mg/dL POC Glucometer 347 H (74 to 106) mg/dL Lactic Acid (0.4-2.0) Calcium (8.4-10.2) mg/dL Ionized Calcium (1.12-1.32) mmol/L Magnesium (1.6-2.3) mg/dL Total Bilirubin (0.2-1.3) mg/dL AST (17-59) U/L ALT (0-50) U/L Alkaline Phosphatase (38-126) U/L Serum Total Protein (6.3-8.2) g/dL Albumin (3.5-5.0) g/dL Urine Color (Yellow) Urine Appearance (Clear) Urine pH (4.6-8.0) Ur Specific [place] (1.005-1.030) Urine Protein (Negative) Urine Glucose (UA) (Negative) mg/dL Urine Ketones (Negative) Urine Blood (Negative) Urine Nitrite (Negative) Urine Bilirubin (Negative) Urine Urobilinogen (0.2) mg/dL Ur Leukocyte Esterase (Negative) U Hyaline Cast (Auto) (0-2) /LPF Urine Microscopic RBC (0-5) /HPF Urine Microscopic WBC (0-5) /HPF Ur Epithelial Cells (None Seen) /HPF Urine Bacteria (None Seen) /HPF Granular Casts (None Seen) /LPF Urine Culture Reflexed (NO) Ethyl Alcohol (0-10) mg/dL - Progress Progress: improved, re-examined Progress Note: 10/13/23 11:54 This patient's medical issue is at least moderate complexity. The level of complexity in the workup performed is based on review the patient's past medical history, review of patient's medication list, review the patient drug allergy list, history present illness and physical findings on examination. We did obtain additional, independent history from the patient's teletypesetter operator since the patient speaks only [place]ese. The workup in this patient includes intravenous line placement, normal saline bolus, CBC, CMP, urinalysis, magnesium level and hemoglobin A1c. 10/13/23 17:02 I interpreted the patient's laboratory data results. The patient has at least a mild DKA. The patient did not want to be admitted to the hospital. He does not want to be transferred to a facility. We compromised and are keeping him here until he is adequately hydrated. Will repeat blood work as well as urinalysis. We have made an outpatient appointment for October 17, 2023. This is a Monday next week. He was made aware of the appointment date and time. He states that he is feeling much better and wants to go home. 10/13/23 18:39 I repeated the laboratory tests and interpreted the results. Patient's anion gap is improving but still elevated. His CO2 is improving but still low. His urinalysis continues to show significant number of ketones. His blood sugar is improved as is his venous blood gas. I told the patient, in Guyanese, as I speak Guyanese, that the safest place for him to be over the next 24 to 48 hours is in the hospital. He prefers to stay. We placed a call to telehospitalist. 10/13/23 19:[address] Torres, the telehospitalist on tonight. I reviewed the patient history, presenting complaint, laboratory workup and the results and the management that we provided the patient. He accepts the patient for admission. 10/13/23 19:26 Dr. Torres prefers normal saline rather than LR infusion for the patient's crystalloid infusion Discussed with : Zen Counseled pt/family regarding: lab results, diagnosis Medical Desision Making - Independent Historian Additional History obtained from: Relative/friend (Who aided in Guyanese interpretation) - Discussion of managment Care discussed with:: hospitalist Reviewed:: Test results, Need for additional workup Agreed on:: decision to admit - Diagnostic Testing Diagnostic test were ordered, analyzed, and reviewed by me: Yes - Risk of complications The pt has a high risk of morbidity or mortality based on: Decision regarding hospitilization or escalation of hosp level of care - Departure Departure Disposition: In-patient Admission Clinical Impression: DKA (diabetic ketoacidosis), Non compliance w medication regimen Condition: Stable Critical Care Time: Yes Critical Care Time(excluding separately billable procedures): Critical 30-74 mins (45 minutes) Referrals: PHILLIP LARSEN MD [Primary Care Provider] - Follow up/PCP as directed Additional Instructions: Drink plenty of fluids. Monitor your blood sugar levels closely. Keep your appointment that was scheduled for you to see Charis Childs nurse practitioner on October 17, 2023 at 10:30 AM. Consume a diabetic diet.
[2023-10-13 11:30] LABS: Absolute Neutrophil Ct (ANC) 8.34 x10^3/uL (1.4-6.9); BASOPHIL % 0.8 % (0.0-0.4); Basophil (Absolute #) 0.08 x10^3/uL (0-0.4); Eosinophil % 0.4 % (0.00-5.0); Eosinophil (Absolute #) 0.04 x10^3/uL (0-0.5); Hematocrit 49.6 % (42-50); Hemoglobin 16.4 g/dL (12.5-18.0); IMMATURE GRAN # 0.04 x10^3u/L (0.00-0.03); IMMATURE GRAN % 0.4 % (0.00-0.4); Lymphocyte (Absolute #) 1.41 x10^3/uL (1.0-4.6); Lymphocytes % 13.5 % (24.0-44.0); Mean Cell Volume 84.1 fL (78-100); Mean Corpuscular Hemoglobin 27.8 pg (26-32); Mean Corpuscular Hgb Concent. 33.1 g/dL (32-36); Mean Platelet Volume 10.9 fL (7.5-11.0); Monocyte (Absolute #) 0.53 x10^3/uL (0.0-1.3); Monocytes % 5.1 % (0.0-12.0); Neutrophil % 79.8 % (36.0-66.0); Platelet Count 248 x10^3/uL (150-450); Red Cell Distribution Width 13.3 % (11.5-14.0); White Blood Count 10.4 x10^3/uL (4.0-10.5)
[2023-10-13] MEDS ORDERED: Sodium Chloride 0.9% 1000 ML 1,000 ML ONE ×2 (11:30→13:54)
[2023-10-13] MEDS: Sodium Chloride 0.9% 1000 ML 1,000 ML IV STA ×2 (11:32→13:55)
[2023-10-13 11:36] LABS: ALBUMIN 4.9 g/dL (3.5-5.0); ALKALINE PHOSPHATASE 191 U/L (38-126); ANION GAP 28.3 MEQ/L (5-15); BLOOD UREA NITROGEN 9 mg/dL (9-20); CHLORIDE 103 mmol/L (98-107); Calcium 9.4 mg/dL (8.4-10.2); EST GLOMERULAR FILTRATION RATE 122.3 ML/MIN; ETHYL ALCOHOL < 10 mg/dL (0-10); Glucose 347 mg/dL (74-106); Potassium 3.9 mmol/L (3.5-5.1); SGOT/AST 23 U/L (17-59); SGPT/ALT 54 U/L (0-50); SODIUM 134 mmol/L (135-145); Total Protein 8.4 g/dL (6.3-8.2)
[2023-10-13 11:44] LABS: Carbon Dioxide 7 mmol/L (22-30)
[2023-10-13] MEDS ORDERED: HUMULIN R ONE ×2 (12:00→19:31)
[2023-10-13 12:02] LABS: VBG BASE EXCESS -15.2 (-2.0-2.0); VBG CARBOXYHEMOGLOBIN 3.4 % T HGB (0.0-6.9); VBG HCO3- 11.9 meq/L (22-28); VBG HEMOGLOBIN 16.8; VBG O2 SATURATION 62.7 (95-100); VBG POTASSIUM 3.9 (3.5-5.1)
[2023-10-13 12:03] LABS: VBG pH 7.18 (7.32-7.42)
[2023-10-13] MEDS: HUMULIN R IV ONE ×2 (12:03→19:32)
[2023-10-13 12:16] LABS: ADD URINE CULTURE? YES (NO); Appearance Clear (Clear); Bacteria None Seen /HPF (None Seen); Bilirubin Negative (Negative); Blood Small (Negative); Epithelial Cells None Seen /HPF (None Seen); Glucose, Urine >=1000 mg/dL (Negative); Hyaline Casts 0-2 /LPF (0-2); Ketones >=160 (Negative); Leukocyte Esterase Negative (Negative); Nitrite Negative (Negative); Ph 5.5 (4.6-8.0); Protein,Urine Dip 100 (Negative); RBC 0-2 /HPF (0-5); Specific Gravity >=1.030 (1.005-1.030); Urobilinogen 0.2 mg/dL (0.2); WBC 0-2 /HPF (0-5)
[2023-10-13] MEDS ORDERED: Lactated Ringers 1,000 ML IV ONE ×2 (12:36→15:51)
[2023-10-13] MEDS ORDERED: SODIUM BICARBONATE 50 MEQ/50 ML ABBOJECT IV ONE ×2 (12:36→21:48)
[2023-10-13] MEDS: SODIUM BICARBONATE 50 MEQ/50 ML ABBOJECT IV ONE (12:39)
[2023-10-13] MEDS: Lactated Ringers 1,000 ML IV ONE (12:41)
[2023-10-13 15:20] LABS: VBG BASE EXCESS -12.6 (-2.0-2.0); VBG CARBOXYHEMOGLOBIN 2.1 % T HGB (0.0-6.9); VBG HEMOGLOBIN 14.4; VBG O2 SATURATION 47.2 (95-100); VBG POTASSIUM 3.9 (3.5-5.1); VBG pH 7.26 (7.32-7.42)
[2023-10-13 15:31] LABS: ISTAT CREA 0.6 mg/dL (0.6-1.3); ISTAT K 3.7 mmol/L (3.5-4.9); ISTAT iCA 1.18 mmol/L (1.12-1.32)
[2023-10-13] MEDS: Lactated Ringers 500 ML IV ONE (15:54)
[2023-10-13 17:06] LABS: Appearance Clear (Clear); Bacteria None Seen /HPF (None Seen); Bilirubin Negative (Negative); Blood Small (Negative); Epithelial Cells None Seen /HPF (None Seen); Glucose, Urine >=1000 mg/dL (Negative); Ketones >=160 (Negative); Leukocyte Esterase Negative (Negative); Nitrite Negative (Negative); Ph 5.5 (4.6-8.0); Protein,Urine Dip 30 (Negative); RBC 0-2 /HPF (0-5); Specific Gravity >=1.030 (1.005-1.030); Urobilinogen 0.2 mg/dL (0.2); WBC 0-2 /HPF (0-5)
[2023-10-13 17:07] LABS: ADD URINE CULTURE? YES (NO)
[2023-10-13 17:41] LABS: ALBUMIN 4.1 g/dL (3.5-5.0); ANION GAP 22.3 MEQ/L (5-15); BILIRUBIN,TOTAL 1.6 mg/dL (0.2-1.3); Calcium 8.2 mg/dL (8.4-10.2); Creatinine 1 0.78 mg/dL (0.66-1.25); EST GLOMERULAR FILTRATION RATE 127.7 ML/MIN; Potassium 3.4 mmol/L (3.5-5.1)
[2023-10-13 17:42] LABS: Appearance Clear (Clear); Bacteria None Seen /HPF (None Seen); Bilirubin Negative (Negative); Blood Small (Negative); Epithelial Cells None Seen /HPF (None Seen); Glucose, Urine >=1000 mg/dL (Negative); Ketones >=160 (Negative); Leukocyte Esterase Negative (Negative); Nitrite Negative (Negative); Ph 5.5 (4.6-8.0); Protein,Urine Dip 30 (Negative); RBC 0-2 /HPF (0-5); Specific Gravity >=1.030 (1.005-1.030); Urobilinogen 0.2 mg/dL (0.2); WBC 0-2 /HPF (0-5)
[2023-10-13 17:43] LABS: ADD URINE CULTURE? NO (NO)
[2023-10-13] MEDS ORDERED: HUMALOG SQ PRN (19:55)
[2023-10-13] MEDS ORDERED: PHENERGAN 25 MG PO PRN (19:55)
[2023-10-13] MEDS ORDERED: TYLENOL 325 MG PO PRN ×2 (19:55→20:08)
--- NOTE | 2023-10-13 20:03 | PCM.HP ---
History of Present Illness - Chief Complaint Chief Complaint: Hyperglycemia History of Present Illness: is a 23 year old male with hx of DMII came in with dizziness and increased thirst. He has not been taking any medication for his DM for 5 months now. He used to take oral meds for his DM but cannot recall which meds. He said he gets the medications at [facility] locally. Does not have a PCP at this time. BS in the 300s and + ketones in urine on eval here. He denies fever, chest pain, SOB, nausea, vomiting, diarrhea, dysuria. Has dizziness but no syncope, headache, seizure. Work-up is shows elevated AG with bicarb 12-16. But ER felt he is a bit dehydrated and could benefit from IVF and overnight observation. ER also requested an OP referral for a PCP. I am seeing pt via telemedicine. He is comfortable and does not appear septic on my exam - Review of Systems Constitutional: Fatigue Eyes: No Symptoms Ears, Nose, & Throat: No Symptoms Respiratory: No Symptoms Cardiac: No Symptoms Abdominal/Gastrointestinal: No Symptoms Genitourinary Symptoms: No Symptoms Musculoskeletal: No Symptoms Skin: No Symptoms Neurological: Dizziness Psychological: No Symptoms Endocrine: Polydipsia Hematologic/Lymphatic: No Symptoms Immunological/Allergic: No Symptoms Medications & Allergies Home Medications: Home Medication List No Reportable Medications [No Reported Medications] 10/13/23 [History Confirmed 10/13/23] Allergies/Adverse Reactions: Allergies Allergy/AdvReac Type Severity Reaction Status Date / Time No Known Drug Allergies Allergy Verified 10/13/23 10:50 - Past Medical History Past Medical History: No Neurological History: No Pertinent History ENT History: No Pertinent History Cardiac History: No Pertinent History Respiratory History: No Pertinent History Endocrine Medical History: Diabetes Type II Musculoskelatal History: No Pertinent History GI Medical History: No Pertinent History History: No Pertinent History Pyscho-Social History: No Pertinent History Male Reproductive Disorders: No Pertinent History - Past Surgical History Past Surgical History: No Neuro Surgical History: No Pertinent History Cardiac History: No Pertinent History Respiratory Surgery: No Pertinent History GI Surgical History: No Pertinent History Genitourinary Surgical Hx: No Pertinent History Musculskeletal Surgical Hx: No Pertinent History Male Surgical History: No Pertinent History Significant Family History: no pertinent family hx - Social History Smoking Status: Current every day smoker How long have you smoked: 2 years Exposure to second hand smoke: Yes Alcohol: Occasionally Drug Use: none - Social Determinants of Health Will the patient participate in the screening: Yes Do you worry about a steady place to live?: Yes Do you have any problems with any of the following?: No known problems In the past 12 months,have you had to go without utilities?: No Have you or anyone in your house had to go without enough: No Transportation Issues: No Has anyone in your support network made you feel unsafe?: No - Physical Exam Vital Signs: Vital Signs - 24 hr Temp Pulse Resp BP BP Pulse Ox 10/13/23 19:10 72 24 97 10/13/23 19:06 83 24 97 10/13/23 18:50 79 21 98 10/13/23 18:40 77 28 H 98 10/13/23 18:30 78 30 H 99 10/13/23 18:20 75 22 99 10/13/23 18:10 76 24 99 10/13/23 18:00 86 24 99 10/13/23 17:50 73 28 H 99 10/13/23 17:40 77 27 H 99 10/13/23 17:30 100 H 28 H 98 10/13/23 17:20 79 31 H 98 10/13/23 17:10 78 23 98 10/13/23 17:00 112 H 24 98 10/13/23 16:50 68 23 99 10/13/23 16:40 80 19 98 10/13/23 16:30 85 18 98 10/13/23 16:20 71 24 100 10/13/23 16:10 72 24 99 10/13/23 16:00 79 25 H 10/13/23 15:50 69 22 10/13/23 15:40 79 24 98 10/13/23 15:33 75 19 99 10/13/23 15:00 72 27 H 122/75 99 10/13/23 14:30 70 22 122/72 99 10/13/23 14:00 86 22 118/76 98 10/13/23 13:30 74 18 121/75 98 10/13/23 13:00 85 18 127/72 98 10/13/23 12:00 76 21 129/81 10/13/23 11:30 83 22 120/67 98 10/13/23 11:29 98 10/13/23 10:52 97.6 F 86 20 153/72 98 General Appearance: no apparent distress, alert Neurologic Exam: alert, oriented x 3, cooperative, normal mood/affect Eye Exam: PERRL/EOMI Ears, Nose, Throat Exam: normal ENT inspection, dry mucous membranes Neck Exam: normal inspection, supple, full range of motion Respiratory Exam: normal breath sounds, lungs clear Cardiovascular Exam: regular rate/rhythm, normal heart sounds Gastrointestinal/Abdomen Exam: soft, normal bowel sounds Rectal Exam: deferred Extremity Exam: normal inspection Skin Exam: normal color Results - Labs Lab/Micro Results: Lab Results-Last 24 Hours 10/13/23 10/13/23 10/13/23 Range/Units 10:57 11:18 11:18 WBC 10.4 (4.0-10.5) x10^3/uL RBC 5.90 H (4.1-5.6) x10^6/uL Hgb 16.4 (12.5-18.0) g/dL Hct 49.6 (42-50) % MCV 84.1 (78-100) fL MCH 27.8 (26-32) pg MCHC 33.1 (32-36) g/dL RDW 13.3 (11.5-14.0) % Plt Count 248 (150-450) x10^3/uL MPV 10.9 (7.5-11.0) fL Gran % 79.8 H (36.0-66.0) % Immature Gran % (Auto) 0.4 (0.00-0.4) % Nucleat RBC Rel Count 0.0 (0.00-0.1) % Eos # (Auto) 0.04 (0-0.5) x10^3/uL Immature Gran # (Auto) 0.04 H (0.00-0.03) x10^3u/L Absolute Lymphs (auto) 1.41 (1.0-4.6) x10^3/uL Absolute Monos (auto) 0.53 (0.0-1.3) x10^3/uL Absolute Nucleated RBC 0.00 (0.00-0.01) x10^3u/L Lymphocytes % 13.5 L (24.0-44.0) % Monocytes % 5.1 (0.0-12.0) % Eosinophils % 0.4 (0.00-5.0) % Basophils % 0.8 (0.0-0.4) % Absolute Granulocytes 8.34 H (1.4-6.9) x10^3/uL Basophils # 0.08 (0-0.4) x10^3/uL pO2/FiO2 Ratio % VBG pH (7.32-7.42) VBG pCO2 at Pat Temp (42-55) mm/Hg VBG pO2 at Pat Temp (25-40) mm/Hg VBG HCO3 (22-28) meq/L VBG O2 Sat (Marcial) (95-100) VBG Base Excess (-2.0-2.0) VBG Hemoglobin VBG Carboxyhemoglobin (0.0-6.9) % T HGB POC Potassium (3.5-5.1) Sodium 134 L (135-145) mmol/L Sodium Direct (138-146) mmol/L Potassium 3.9 (3.5-5.1) mmol/L Chloride 103 (98-107) mmol/L Carbon Dioxide 7 L* (22-30) mmol/L Anion Gap 28.3 H (5-15) MEQ/L BUN 9 (9-20) mg/dL Venous BUN (8-26) mg/dL Creatinine 0.90 (0.66-1.25) mg/dL Estimated GFR 122.3 ML/MIN Glucose 347 H (74-106) mg/dL POC Glucometer 347 H (74 to 106) mg/dL Lactic Acid (0.4-2.0) Calcium 9.4 (8.4-10.2) mg/dL Ionized Calcium (1.12-1.32) mmol/L Magnesium 2.0 (1.6-2.3) mg/dL Total Bilirubin 1.30 (0.2-1.3) mg/dL AST 23 (17-59) U/L ALT 54 H (0-50) U/L Alkaline Phosphatase 191 H (38-126) U/L Serum Total Protein 8.4 H (6.3-8.2) g/dL Albumin 4.9 (3.5-5.0) g/dL Urine Color (Yellow) Urine Appearance (Clear) Urine pH (4.6-8.0) Ur Specific Mcclelland (1.005-1.030) Urine Protein (Negative) Urine Glucose (UA) (Negative) mg/dL Urine Ketones (Negative) Urine Blood (Negative) Urine Nitrite (Negative) Urine Bilirubin (Negative) Urine Urobilinogen (0.2) mg/dL Ur Leukocyte Esterase (Negative) U Hyaline Cast (Auto) (0-2) /LPF Urine Microscopic RBC (0-5) /HPF Urine Microscopic WBC (0-5) /HPF Ur Epithelial Cells (None Seen) /HPF Urine Bacteria (None Seen) /HPF Granular Casts (None Seen) /LPF Urine Culture Reflexed (NO) Ethyl Alcohol < 10 (0-10) mg/dL 10/13/23 10/13/23 10/13/23 Range/Units 11:29 11:35 11:56 WBC (4.0-10.5) x10^3/uL RBC (4.1-5.6) x10^6/uL Hgb (12.5-18.0) g/dL Hct (42-50) % MCV (78-100) fL MCH (26-32) pg MCHC (32-36) g/dL RDW (11.5-14.0) % Plt Count (150-450) x10^3/uL MPV (7.5-11.0) fL Gran % (36.0-66.0) % Immature Gran % (Auto) (0.00-0.4) % Nucleat RBC Rel Count (0.00-0.1) % Eos # (Auto) (0-0.5) x10^3/uL Immature Gran # (Auto) (0.00-0.03) x10^3u/L Absolute Lymphs (auto) (1.0-4.6) x10^3/uL Absolute Monos (auto) (0.0-1.3) x10^3/uL Absolute Nucleated RBC (0.00-0.01) x10^3u/L Lymphocytes % (24.0-44.0) % Monocytes % (0.0-12.0) % Eosinophils % (0.00-5.0) % Basophils % (0.0-0.4) % Absolute Granulocytes (1.4-6.9) x10^3/uL Basophils # (0-0.4) x10^3/uL pO2/FiO2 Ratio 21.0 % VBG pH 7.18 L* (7.32-7.42) VBG pCO2 at Pat Temp 32 L (42-55) mm/Hg VBG pO2 at Pat Temp 38 (25-40) mm/Hg VBG HCO3 11.9 L* (22-28) meq/L VBG O2 Sat (Marcial) 62.7 L (95-100) VBG Base Excess -15.2 L (-2.0-2.0) VBG Hemoglobin 16.8 VBG Carboxyhemoglobin 3.4 (0.0-6.9) % T HGB POC Potassium 3.9 (3.5-5.1) Sodium (135-145) mmol/L Sodium Direct (138-146) mmol/L Potassium (3.5-5.1) mmol/L Chloride (98-107) mmol/L Carbon Dioxide (22-30) mmol/L Anion Gap (5-15) MEQ/L BUN (9-20) mg/dL Venous BUN (8-26) mg/dL Creatinine (0.66-1.25) mg/dL Estimated GFR ML/MIN Glucose (74-106) mg/dL POC Glucometer (74 to 106) mg/dL Lactic Acid 1.5 (0.4-2.0) Calcium (8.4-10.2) mg/dL Ionized Calcium (1.12-1.32) mmol/L Magnesium (1.6-2.3) mg/dL Total Bilirubin (0.2-1.3) mg/dL AST (17-59) U/L ALT (0-50) U/L Alkaline Phosphatase (38-126) U/L Serum Total Protein (6.3-8.2) g/dL Albumin (3.5-5.0) g/dL Urine Color Yellow (Yellow) Urine Appearance Clear (Clear) Urine pH 5.5 (4.6-8.0) Ur Specific Mcclelland >=1.030 A (1.005-1.030) Urine Protein 100 A (Negative) Urine Glucose (UA) >=1000 A (Negative) mg/dL Urine Ketones >=160 A (Negative) Urine Blood Small A (Negative) Urine Nitrite Negative (Negative) Urine Bilirubin Negative (Negative) Urine Urobilinogen 0.2 (0.2) mg/dL Ur Leukocyte Esterase Negative (Negative) U Hyaline Cast (Auto) 0-2 (0-2) /LPF Urine Microscopic RBC 0-2 (0-5) /HPF Urine Microscopic WBC 0-2 (0-5) /HPF Ur Epithelial Cells None Seen (None Seen) /HPF Urine Bacteria None Seen (None Seen) /HPF Granular Casts 3-5 A (None Seen) /LPF Urine Culture Reflexed YES (NO) Ethyl Alcohol (0-10) mg/dL 10/13/23 10/13/23 10/13/23 Range/Units 13:38 14:55 15:05 WBC (4.0-10.5) x10^3/uL RBC (4.1-5.6) x10^6/uL Hgb (12.5-18.0) g/dL Hct (42-50) % MCV (78-100) fL MCH (26-32) pg MCHC (32-36) g/dL RDW (11.5-14.0) % Plt Count (150-450) x10^3/uL MPV (7.5-11.0) fL Gran % (36.0-66.0) % Immature Gran % (Auto) (0.00-0.4) % Nucleat RBC Rel Count (0.00-0.1) % Eos # (Auto) (0-0.5) x10^3/uL Immature Gran # (Auto) (0.00-0.03) x10^3u/L Absolute Lymphs (auto) (1.0-4.6) x10^3/uL Absolute Monos (auto) (0.0-1.3) x10^3/uL Absolute Nucleated RBC (0.00-0.01) x10^3u/L Lymphocytes % (24.0-44.0) % Monocytes % (0.0-12.0) % Eosinophils % (0.00-5.0) % Basophils % (0.0-0.4) % Absolute Granulocytes (1.4-6.9) x10^3/uL Basophils # (0-0.4) x10^3/uL pO2/FiO2 Ratio 21.0 % VBG pH 7.26 L (7.32-7.42) VBG pCO2 at Pat Temp 29 L (42-55) mm/Hg VBG pO2 at Pat Temp 28 (25-40) mm/Hg VBG HCO3 13.0 L* (22-28) meq/L VBG O2 Sat (Marcial) 47.2 L (95-100) VBG Base Excess -12.6 L (-2.0-2.0) VBG Hemoglobin 14.4 VBG Carboxyhemoglobin 2.1 (0.0-6.9) % T HGB POC Potassium 3.9 (3.5-5.1) Sodium (135-145) mmol/L Sodium Direct (138-146) mmol/L Potassium (3.5-5.1) mmol/L Chloride (98-107) mmol/L Carbon Dioxide (22-30) mmol/L Anion Gap (5-15) MEQ/L BUN (9-20) mg/dL Venous BUN (8-26) mg/dL Creatinine (0.66-1.25) mg/dL Estimated GFR ML/MIN Glucose (74-106) mg/dL POC Glucometer 284 H 206 H (74 to 106) mg/dL Lactic Acid (0.4-2.0) Calcium (8.4-10.2) mg/dL Ionized Calcium (1.12-1.32) mmol/L Magnesium (1.6-2.3) mg/dL Total Bilirubin (0.2-1.3) mg/dL AST (17-59) U/L ALT (0-50) U/L Alkaline Phosphatase (38-126) U/L Serum Total Protein (6.3-8.2) g/dL Albumin (3.5-5.0) g/dL Urine Color (Yellow) Urine Appearance (Clear) Urine pH (4.6-8.0) Ur Specific Mcclelland (1.005-1.030) Urine Protein (Negative) Urine Glucose (UA) (Negative) mg/dL Urine Ketones (Negative) Urine Blood (Negative) Urine Nitrite (Negative) Urine Bilirubin (Negative) Urine Urobilinogen (0.2) mg/dL Ur Leukocyte Esterase (Negative) U Hyaline Cast (Auto) (0-2) /LPF Urine Microscopic RBC (0-5) /HPF Urine Microscopic WBC (0-5) /HPF Ur Epithelial Cells (None Seen) /HPF Urine Bacteria (None Seen) /HPF Granular Casts (None Seen) /LPF Urine Culture Reflexed (NO) Ethyl Alcohol (0-10) mg/dL 10/13/23 10/13/23 10/13/23 Range/Units 15:05 16:30 17:19 WBC (4.0-10.5) x10^3/uL RBC (4.1-5.6) x10^6/uL Hgb (12.5-18.0) g/dL Hct (42-50) % MCV (78-100) fL MCH (26-32) pg MCHC (32-36) g/dL RDW (11.5-14.0) % Plt Count (150-450) x10^3/uL MPV (7.5-11.0) fL Gran % (36.0-66.0) % Immature Gran % (Auto) (0.00-0.4) % Nucleat RBC Rel Count (0.00-0.1) % Eos # (Auto) (0-0.5) x10^3/uL Immature Gran # (Auto) (0.00-0.03) x10^3u/L Absolute Lymphs (auto) (1.0-4.6) x10^3/uL Absolute Monos (auto) (0.0-1.3) x10^3/uL Absolute Nucleated RBC (0.00-0.01) x10^3u/L Lymphocytes % (24.0-44.0) % Monocytes % (0.0-12.0) % Eosinophils % (0.00-5.0) % Basophils % (0.0-0.4) % Absolute Granulocytes (1.4-6.9) x10^3/uL Basophils # (0-0.4) x10^3/uL pO2/FiO2 Ratio % VBG pH (7.32-7.42) VBG pCO2 at Pat Temp (42-55) mm/Hg VBG pO2 at Pat Temp (25-40) mm/Hg VBG HCO3 (22-28) meq/L VBG O2 Sat (Marcial) (95-100) VBG Base Excess (-2.0-2.0) VBG Hemoglobin VBG Carboxyhemoglobin (0.0-6.9) % T HGB POC Potassium (3.5-5.1) Sodium (135-145) mmol/L Sodium Direct 137 L (138-146) mmol/L Potassium 3.7 (3.5-5.1) mmol/L Chloride 107 (98-107) mmol/L Carbon Dioxide 16 L (22-30) mmol/L Anion Gap (5-15) MEQ/L BUN (9-20) mg/dL Venous BUN 7 L (8-26) mg/dL Creatinine 0.6 (0.66-1.25) mg/dL Estimated GFR ML/MIN Glucose 259 H (74-106) mg/dL POC Glucometer (74 to 106) mg/dL Lactic Acid (0.4-2.0) Calcium (8.4-10.2) mg/dL Ionized Calcium 1.18 (1.12-1.32) mmol/L Magnesium (1.6-2.3) mg/dL Total Bilirubin (0.2-1.3) mg/dL AST (17-59) U/L ALT (0-50) U/L Alkaline Phosphatase (38-126) U/L Serum Total Protein (6.3-8.2) g/dL Albumin (3.5-5.0) g/dL Urine Color Yellow Yellow (Yellow) Urine Appearance Clear Clear (Clear) Urine pH 5.5 5.5 (4.6-8.0) Ur Specific Mcclelland >=1.030 A >=1.030 A (1.005-1.030) Urine Protein 30 30 (Negative) Urine Glucose (UA) >=1000 A >=1000 A (Negative) mg/dL Urine Ketones >=160 A >=160 A (Negative) Urine Blood Small A Small A (Negative) Urine Nitrite Negative Negative (Negative) Urine Bilirubin Negative Negative (Negative) Urine Urobilinogen 0.2 0.2 (0.2) mg/dL Ur Leukocyte Esterase Negative Negative (Negative) U Hyaline Cast (Auto) 6-10 A 11-20 (0-2) /LPF Urine Microscopic RBC 0-2 0-2 (0-5) /HPF Urine Microscopic WBC 0-2 0-2 (0-5) /HPF Ur Epithelial Cells None Seen None Seen (None Seen) /HPF Urine Bacteria None Seen None Seen (None Seen) /HPF Granular Casts (None Seen) /LPF Urine Culture Reflexed YES NO (NO) Ethyl Alcohol (0-10) mg/dL 10/13/23 10/13/23 Range/Units 17:20 19:25 WBC (4.0-10.5) x10^3/uL RBC (4.1-5.6) x10^6/uL Hgb (12.5-18.0) g/dL Hct (42-50) % MCV (78-100) fL MCH (26-32) pg MCHC (32-36) g/dL RDW (11.5-14.0) % Plt Count (150-450) x10^3/uL MPV (7.5-11.0) fL Gran % (36.0-66.0) % Immature Gran % (Auto) (0.00-0.4) % Nucleat RBC Rel Count (0.00-0.1) % Eos # (Auto) (0-0.5) x10^3/uL Immature Gran # (Auto) (0.00-0.03) x10^3u/L Absolute Lymphs (auto) (1.0-4.6) x10^3/uL Absolute Monos (auto) (0.0-1.3) x10^3/uL Absolute Nucleated RBC (0.00-0.01) x10^3u/L Lymphocytes % (24.0-44.0) % Monocytes % (0.0-12.0) % Eosinophils % (0.00-5.0) % Basophils % (0.0-0.4) % Absolute Granulocytes (1.4-6.9) x10^3/uL Basophils # (0-0.4) x10^3/uL pO2/FiO2 Ratio % VBG pH (7.32-7.42) VBG pCO2 at Pat Temp (42-55) mm/Hg VBG pO2 at Pat Temp (25-40) mm/Hg VBG HCO3 (22-28) meq/L VBG O2 Sat (Marcial) (95-100) VBG Base Excess (-2.0-2.0) VBG Hemoglobin VBG Carboxyhemoglobin (0.0-6.9) % T HGB POC Potassium (3.5-5.1) Sodium 137 (135-145) mmol/L Sodium Direct (138-146) mmol/L Potassium 3.4 L (3.5-5.1) mmol/L Chloride 106 (98-107) mmol/L Carbon Dioxide 12 L* (22-30) mmol/L Anion Gap 22.3 H (5-15) MEQ/L BUN 6 L (9-20) mg/dL Venous BUN (8-26) mg/dL Creatinine 0.78 (0.66-1.25) mg/dL Estimated GFR 127.7 ML/MIN Glucose 256 H (74-106) mg/dL POC Glucometer 366 H (74 to 106) mg/dL Lactic Acid (0.4-2.0) Calcium 8.2 L (8.4-10.2) mg/dL Ionized Calcium (1.12-1.32) mmol/L Magnesium (1.6-2.3) mg/dL Total Bilirubin 1.60 H (0.2-1.3) mg/dL AST 23 (17-59) U/L ALT 44 (0-50) U/L Alkaline Phosphatase 140 H (38-126) U/L Serum Total Protein 7.0 (6.3-8.2) g/dL Albumin 4.1 (3.5-5.0) g/dL Urine Color (Yellow) Urine Appearance (Clear) Urine pH (4.6-8.0) Ur Specific Mcclelland (1.005-1.030) Urine Protein (Negative) Urine Glucose (UA) (Negative) mg/dL Urine Ketones (Negative) Urine Blood (Negative) Urine Nitrite (Negative) Urine Bilirubin (Negative) Urine Urobilinogen (0.2) mg/dL Ur Leukocyte Esterase (Negative) U Hyaline Cast (Auto) (0-2) /LPF Urine Microscopic RBC (0-5) /HPF Urine Microscopic WBC (0-5) /HPF Ur Epithelial Cells (None Seen) /HPF Urine Bacteria (None Seen) /HPF Granular Casts (None Seen) /LPF Urine Culture Reflexed (NO) Ethyl Alcohol (0-10) mg/dL Accuchecks Date 10/13/23 Date 10/13/23 Date 10/13/23 Time 19:25 Time 14:55 Time 13:38 Assessment/Plan (1) DKA (diabetic ketoacidosis) Current Visit: Yes Status: Acute Assessment & Plan: AGMA due to DKA. SSI, IVF. ER gave 3 liters of IVF already. HCO3 has improved to 16. Ok to monitor on the floor with SSI for now, but low threshold for ICU admission and insulin drip. Bicarb drip. Check BS every 4 hrs. Will recheck BMP at midnight CM to help him set up with a PCP in the area to help with meds and DM management Code(s): E11.10 - TYPE 2 DIABETES MELLITUS WITH KETOACIDOSIS WITHOUT COMA (2) Hypokalemia Current Visit: Yes Status: Acute Assessment & Plan: Due to DKA, and poor intake. Will replace and monitor Code(s): E87.6 - HYPOKALEMIA (3) DMII (diabetes mellitus, type 2) Current Visit: Yes Status: Acute Assessment & Plan: Not on meds at home due to lack of insurance and PCP. CM to help set him up, get him connected to local resources. ADA diet, SSI, accucheck, A1C (4) Dehydration Current Visit: No Status: Acute Assessment & Plan: IVF as above Code(s): E86.0 - DEHYDRATION Telemedicine Encounter - Telemedicine Encounter Telemedicine Encounter: The entirety of this encounter was performed via Telemedicine" Pt gave me verbal consent to have this telemedicine visit
[2023-10-13] MEDS ORDERED: Zofran 4 MG/2 ML VIAL IV PRN (20:08)
[2023-10-13] MEDS ORDERED: Dextrose 5%/Water IV Soln. 1000 ML 0 ML IV ONE (21:48)
[2023-10-13] MEDS: Sodium Bicarbonate 50 MEQ/50 ML VIAL*** 150 MEQ in Dextrose 5%/Water IV Soln. 1000 ML 1... IV SCH (22:13)
[2023-10-13] MEDS: HUMULIN R SQ PRN (22:31)
[2023-10-14 00:45] LABS: ANION GAP 21.5 MEQ/L (5-15); Calcium 8.3 mg/dL (8.4-10.2); Creatinine 1 0.84 mg/dL (0.66-1.25); EST GLOMERULAR FILTRATION RATE 124.9 ML/MIN; Potassium 3.2 mmol/L (3.5-5.1)
[2023-10-14] MEDS: Sodium Chloride 0.9% 1000 ML 1,000 ML IV SCH ×2 (03:23→13:47)
[2023-10-14] MEDS: Lactated Ringers 1,000 ML IV SCH (03:23)
[2023-10-14 05:44] LABS: Hematocrit 40.8 % (42-50); Hemoglobin 13.8 g/dL (12.5-18.0); Mean Cell Volume 82.3 fL (78-100); Mean Corpuscular Hemoglobin 27.8 pg (26-32); Mean Corpuscular Hgb Concent. 33.8 g/dL (32-36); Mean Platelet Volume 10.7 fL (7.5-11.0); Platelet Count 209 x10^3/uL (150-450); Red Blood Count 4.96 x10^6/uL (4.1-5.6); Red Cell Distribution Width 13.3 % (11.5-14.0); White Blood Count 7.6 x10^3/uL (4.0-10.5)
[2023-10-14 06:17] LABS: ALBUMIN 3.4 g/dL (3.5-5.0); ANION GAP 15.3 MEQ/L (5-15); BILIRUBIN,TOTAL 1.3 mg/dL (0.2-1.3); Calcium 8.5 mg/dL (8.4-10.2); Creatinine 1 0.68 mg/dL (0.66-1.25); EST GLOMERULAR FILTRATION RATE 133.1 ML/MIN; Total Protein 6.1 g/dL (6.3-8.2)
[2023-10-14] MEDS ORDERED: SODIUM BICARBONATE 50 MEQ/50 ML ABBOJECT IV ONE ×2 (06:19→06:21)
[2023-10-14] MEDS ORDERED: Dextrose 5%/Water IV Soln. 1000 ML 0 ML IV ONE (06:25)
[2023-10-14 06:26] LABS: Potassium 2.7 mmol/L (3.5-5.1)
[2023-10-14] MEDS: Klor Con PO ONE (06:56)
[2023-10-14] MEDS: SODIUM CHLORIDE 0.45% W/ 20 mEq KCL 1,000 ML IV SCH (06:57)
--- NOTE | 2023-10-14 09:41 | PCM.NOTE ---
Date and Time: 10/14/23925 Subjective Assessment: is a 23 year old male with hx of DMII came in with dizziness and increased thirst. He has not been taking any medication for his DM for 5 months now. He used to take oral meds for his DM but cannot recall which meds. He said he gets the medications at [facility] locally. Does not have a PCP at this time. BS in the 300s and + ketones in urine on eval here. 10/14/23:Admitted with DKA. Endorses much improvement since admission. Labs improving, potassium was low this morning and is being replenished. Will have CM look into help with medications and getting a PCP lined up for patient. Denies fever,cough, sob, cp, abdominal pain, FERGUSON, dizziness, N/V/D. <YOJANA YANG - Last Filed: 10/14/23 09:26> Date and Time: 10/14/231733 <GRACIA CHAPARRO - Last Filed: 10/14/23 17:36> - Review of Systems Constitutional: No Symptoms Eyes: No Symptoms Ears, Nose, & Throat: No Symptoms Respiratory: No Symptoms Cardiac: No Symptoms Abdominal/Gastrointestinal: No Symptoms Genitourinary Symptoms: No Symptoms Musculoskeletal: No Symptoms Skin: No Symptoms Neurological: No Symptoms Psychological: No Symptoms Endocrine: No Symptoms Hematologic/Lymphatic: No Symptoms Immunological/Allergic: No Symptoms <YOJANA YANG - Last Filed: 10/14/23 09:26> Objective Exam General Appearance: no apparent distress Neurologic Exam: alert, oriented x 3, cooperative Skin Exam: normal color Eye Exam: PERRL Ears, Nose, Throat Exam: normal ENT inspection Neck Exam: normal inspection Respiratory Exam: normal breath sounds, lungs clear Cardiovascular Exam: regular rate/rhythm, normal heart sounds Gastrointestinal/Abdomen Exam: soft, normal bowel sounds Extremity Exam: normal inspection Back Exam: normal inspection Male Genitalia Exam: deferred Rectal Exam: deferred <YOJANA YANG - Last Filed: 10/14/23 09:26> Objective Data Vital Signs: Vital Signs - 24 hr Temp Pulse Resp BP BP Pulse Ox 10/14/23 07:44 97 F 57 L 17 116/70 98 10/14/23 04:15 97.8 F 62 18 123/67 98 10/13/23 23:55 97.8 F 77 18 133/67 98 10/13/23 20:32 97.0 F 77 18 131/79 97 10/13/23 19:10 72 24 97 10/13/23 19:06 83 24 97 10/13/23 18:50 79 21 98 10/13/23 18:40 77 28 H 98 10/13/23 18:30 78 30 H 99 10/13/23 18:20 75 22 99 10/13/23 18:10 76 24 99 10/13/23 18:00 86 24 99 10/13/23 17:50 73 28 H 99 10/13/23 17:40 77 27 H 99 10/13/23 17:30 100 H 28 H 98 10/13/23 17:20 79 31 H 98 10/13/23 17:10 78 23 98 10/13/23 17:00 112 H 24 98 10/13/23 16:50 68 23 99 10/13/23 16:40 80 19 98 10/13/23 16:30 85 18 98 10/13/23 16:20 71 24 100 10/13/23 16:10 72 24 99 10/13/23 16:00 79 25 H 10/13/23 15:50 69 22 10/13/23 15:40 79 24 98 10/13/23 15:33 75 19 99 10/13/23 15:00 72 27 H 122/75 99 10/13/23 14:30 70 22 122/72 99 10/13/23 14:00 86 22 118/76 98 10/13/23 13:30 74 18 121/75 98 10/13/23 13:00 85 18 127/72 98 10/13/23 12:00 76 21 129/81 10/13/23 11:30 83 22 120/67 98 10/13/23 11:29 98 10/13/23 10:52 97.6 F 86 20 153/72 98 Pain Assessment - Last Documented Pain Intensity 0 Intake and Output: Intake & Output 10/11/23 10/12/23 10/13/23 10/14/23 11:59 11:59 11:59 11:59 Intake Total 1200 Balance 1200 Weight 85.9 kg 85.9 kg Lab Results: Lab Results-Last 24 Hours 10/13/23 10/13/23 10/13/23 Range/Units 00:25 10:57 11:18 WBC 10.4 (4.0-10.5) x10^3/uL RBC 5.90 H (4.1-5.6) x10^6/uL Hgb 16.4 (12.5-18.0) g/dL Hct 49.6 (42-50) % MCV 84.1 (78-100) fL MCH 27.8 (26-32) pg MCHC 33.1 (32-36) g/dL RDW 13.3 (11.5-14.0) % Plt Count 248 (150-450) x10^3/uL MPV 10.9 (7.5-11.0) fL Gran % 79.8 H (36.0-66.0) % Immature Gran % (Auto) 0.4 (0.00-0.4) % Nucleat RBC Rel Count 0.0 (0.00-0.1) % Eos # (Auto) 0.04 (0-0.5) x10^3/uL Immature Gran # (Auto) 0.04 H (0.00-0.03) x10^3u/L Absolute Lymphs (auto) 1.41 (1.0-4.6) x10^3/uL Absolute Monos (auto) 0.53 (0.0-1.3) x10^3/uL Absolute Nucleated RBC 0.00 (0.00-0.01) x10^3u/L Lymphocytes % 13.5 L (24.0-44.0) % Monocytes % 5.1 (0.0-12.0) % Eosinophils % 0.4 (0.00-5.0) % Basophils % 0.8 (0.0-0.4) % Absolute Granulocytes 8.34 H (1.4-6.9) x10^3/uL Basophils # 0.08 (0-0.4) x10^3/uL pO2/FiO2 Ratio % VBG pH (7.32-7.42) VBG pCO2 at Pat Temp (42-55) mm/Hg VBG pO2 at Pat Temp (25-40) mm/Hg VBG HCO3 (22-28) meq/L VBG O2 Sat (Marcial) (95-100) VBG Base Excess (-2.0-2.0) VBG Hemoglobin VBG Carboxyhemoglobin (0.0-6.9) % T HGB POC Potassium (3.5-5.1) Sodium 135 (135-145) mmol/L Sodium Direct (138-146) mmol/L Potassium 3.2 L (3.5-5.1) mmol/L Chloride 106 (98-107) mmol/L Carbon Dioxide 11 L* (22-30) mmol/L Anion Gap 21.5 H (5-15) MEQ/L BUN 7 L (9-20) mg/dL Venous BUN (8-26) mg/dL Creatinine 0.84 (0.66-1.25) mg/dL Estimated GFR 124.9 ML/MIN Glucose 354 H (74-106) mg/dL POC Glucometer 347 H (74 to 106) mg/dL Lactic Acid (0.4-2.0) Calcium 8.3 L (8.4-10.2) mg/dL Ionized Calcium (1.12-1.32) mmol/L Magnesium (1.6-2.3) mg/dL Total Bilirubin (0.2-1.3) mg/dL AST (17-59) U/L ALT (0-50) U/L Alkaline Phosphatase (38-126) U/L Serum Total Protein (6.3-8.2) g/dL Albumin (3.5-5.0) g/dL Urine Color (Yellow) Urine Appearance (Clear) Urine pH (4.6-8.0) Ur Specific [place] (1.005-1.030) Urine Protein (Negative) Urine Glucose (UA) (Negative) mg/dL Urine Ketones (Negative) Urine Blood (Negative) Urine Nitrite (Negative) Urine Bilirubin (Negative) Urine Urobilinogen (0.2) mg/dL Ur Leukocyte Esterase (Negative) U Hyaline Cast (Auto) (0-2) /LPF Urine Microscopic RBC (0-5) /HPF Urine Microscopic WBC (0-5) /HPF Ur Epithelial Cells (None Seen) /HPF Urine Bacteria (None Seen) /HPF Granular Casts (None Seen) /LPF Urine Culture Reflexed (NO) Ethyl Alcohol (0-10) mg/dL 10/13/23 10/13/23 10/13/23 Range/Units 11:18 11:29 11:35 WBC (4.0-10.5) x10^3/uL RBC (4.1-5.6) x10^6/uL Hgb (12.5-18.0) g/dL Hct (42-50) % MCV (78-100) fL MCH (26-32) pg MCHC (32-36) g/dL RDW (11.5-14.0) % Plt Count (150-450) x10^3/uL MPV (7.5-11.0) fL Gran % (36.0-66.0) % Immature Gran % (Auto) (0.00-0.4) % Nucleat RBC Rel Count (0.00-0.1) % Eos # (Auto) (0-0.5) x10^3/uL Immature Gran # (Auto) (0.00-0.03) x10^3u/L Absolute Lymphs (auto) (1.0-4.6) x10^3/uL Absolute Monos (auto) (0.0-1.3) x10^3/uL Absolute Nucleated RBC (0.00-0.01) x10^3u/L Lymphocytes % (24.0-44.0) % Monocytes % (0.0-12.0) % Eosinophils % (0.00-5.0) % Basophils % (0.0-0.4) % Absolute Granulocytes (1.4-6.9) x10^3/uL Basophils # (0-0.4) x10^3/uL pO2/FiO2 Ratio % VBG pH (7.32-7.42) VBG pCO2 at Pat Temp (42-55) mm/Hg VBG pO2 at Pat Temp (25-40) mm/Hg VBG HCO3 (22-28) meq/L VBG O2 Sat (Marcial) (95-100) VBG Base Excess (-2.0-2.0) VBG Hemoglobin VBG Carboxyhemoglobin (0.0-6.9) % T HGB POC Potassium (3.5-5.1) Sodium 134 L (135-145) mmol/L Sodium Direct (138-146) mmol/L Potassium 3.9 D (3.5-5.1) mmol/L Chloride 103 (98-107) mmol/L Carbon Dioxide 7 L* (22-30) mmol/L Anion Gap 28.3 H (5-15) MEQ/L BUN 9 (9-20) mg/dL Venous BUN (8-26) mg/dL Creatinine 0.90 (0.66-1.25) mg/dL Estimated GFR 122.3 ML/MIN Glucose 347 H (74-106) mg/dL POC Glucometer (74 to 106) mg/dL Lactic Acid 1.5 (0.4-2.0) Calcium 9.4 (8.4-10.2) mg/dL Ionized Calcium (1.12-1.32) mmol/L Magnesium 2.0 (1.6-2.3) mg/dL Total Bilirubin 1.30 (0.2-1.3) mg/dL AST 23 (17-59) U/L ALT 54 H (0-50) U/L Alkaline Phosphatase 191 H (38-126) U/L Serum Total Protein 8.4 H (6.3-8.2) g/dL Albumin 4.9 (3.5-5.0) g/dL Urine Color Yellow (Yellow) Urine Appearance Clear (Clear) Urine pH 5.5 (4.6-8.0) Ur Specific [place] >=1.030 A (1.005-1.030) Urine Protein 100 A (Negative) Urine Glucose (UA) >=1000 A (Negative) mg/dL Urine Ketones >=160 A (Negative) Urine Blood Small A (Negative) Urine Nitrite Negative (Negative) Urine Bilirubin Negative (Negative) Urine Urobilinogen 0.2 (0.2) mg/dL Ur Leukocyte Esterase Negative (Negative) U Hyaline Cast (Auto) 0-2 (0-2) /LPF Urine Microscopic RBC 0-2 (0-5) /HPF Urine Microscopic WBC 0-2 (0-5) /HPF Ur Epithelial Cells None Seen (None Seen) /HPF Urine Bacteria None Seen (None Seen) /HPF Granular Casts 3-5 A (None Seen) /LPF Urine Culture Reflexed YES (NO) Ethyl Alcohol < 10 (0-10) mg/dL 10/13/23 10/13/23 10/13/23 Range/Units 11:56 13:38 14:55 WBC (4.0-10.5) x10^3/uL RBC (4.1-5.6) x10^6/uL Hgb (12.5-18.0) g/dL Hct (42-50) % MCV (78-100) fL MCH (26-32) pg MCHC (32-36) g/dL RDW (11.5-14.0) % Plt Count (150-450) x10^3/uL MPV (7.5-11.0) fL Gran % (36.0-66.0) % Immature Gran % (Auto) (0.00-0.4) % Nucleat RBC Rel Count (0.00-0.1) % Eos # (Auto) (0-0.5) x10^3/uL Immature Gran # (Auto) (0.00-0.03) x10^3u/L Absolute Lymphs (auto) (1.0-4.6) x10^3/uL Absolute Monos (auto) (0.0-1.3) x10^3/uL Absolute Nucleated RBC (0.00-0.01) x10^3u/L Lymphocytes % (24.0-44.0) % Monocytes % (0.0-12.0) % Eosinophils % (0.00-5.0) % Basophils % (0.0-0.4) % Absolute Granulocytes (1.4-6.9) x10^3/uL Basophils # (0-0.4) x10^3/uL pO2/FiO2 Ratio 21.0 % VBG pH 7.18 L* (7.32-7.42) VBG pCO2 at Pat Temp 32 L (42-55) mm/Hg VBG pO2 at Pat Temp 38 (25-40) mm/Hg VBG HCO3 11.9 L* (22-28) meq/L VBG O2 Sat (Marcial) 62.7 L (95-100) VBG Base Excess -15.2 L (-2.0-2.0) VBG Hemoglobin 16.8 VBG Carboxyhemoglobin 3.4 (0.0-6.9) % T HGB POC Potassium 3.9 (3.5-5.1) Sodium (135-145) mmol/L Sodium Direct (138-146) mmol/L Potassium (3.5-5.1) mmol/L Chloride (98-107) mmol/L Carbon Dioxide (22-30) mmol/L Anion Gap (5-15) MEQ/L BUN (9-20) mg/dL Venous BUN (8-26) mg/dL Creatinine (0.66-1.25) mg/dL Estimated GFR ML/MIN Glucose (74-106) mg/dL POC Glucometer 284 H 206 H (74 to 106) mg/dL Lactic Acid (0.4-2.0) Calcium (8.4-10.2) mg/dL Ionized Calcium (1.12-1.32) mmol/L Magnesium (1.6-2.3) mg/dL Total Bilirubin (0.2-1.3) mg/dL AST (17-59) U/L ALT (0-50) U/L Alkaline Phosphatase (38-126) U/L Serum Total Protein (6.3-8.2) g/dL Albumin (3.5-5.0) g/dL Urine Color (Yellow) Urine Appearance (Clear) Urine pH (4.6-8.0) Ur Specific [place] (1.005-1.030) Urine Protein (Negative) Urine Glucose (UA) (Negative) mg/dL Urine Ketones (Negative) Urine Blood (Negative) Urine Nitrite (Negative) Urine Bilirubin (Negative) Urine Urobilinogen (0.2) mg/dL Ur Leukocyte Esterase (Negative) U Hyaline Cast (Auto) (0-2) /LPF Urine Microscopic RBC (0-5) /HPF Urine Microscopic WBC (0-5) /HPF Ur Epithelial Cells (None Seen) /HPF Urine Bacteria (None Seen) /HPF Granular Casts (None Seen) /LPF Urine Culture Reflexed (NO) Ethyl Alcohol (0-10) mg/dL 10/13/23 10/13/23 10/13/23 Range/Units 15:05 15:05 16:30 WBC (4.0-10.5) x10^3/uL RBC (4.1-5.6) x10^6/uL Hgb (12.5-18.0) g/dL Hct (42-50) % MCV (78-100) fL MCH (26-32) pg MCHC (32-36) g/dL RDW (11.5-14.0) % Plt Count (150-450) x10^3/uL MPV (7.5-11.0) fL Gran % (36.0-66.0) % Immature Gran % (Auto) (0.00-0.4) % Nucleat RBC Rel Count (0.00-0.1) % Eos # (Auto) (0-0.5) x10^3/uL Immature Gran # (Auto) (0.00-0.03) x10^3u/L Absolute Lymphs (auto) (1.0-4.6) x10^3/uL Absolute Monos (auto) (0.0-1.3) x10^3/uL Absolute Nucleated RBC (0.00-0.01) x10^3u/L Lymphocytes % (24.0-44.0) % Monocytes % (0.0-12.0) % Eosinophils % (0.00-5.0) % Basophils % (0.0-0.4) % Absolute Granulocytes (1.4-6.9) x10^3/uL Basophils # (0-0.4) x10^3/uL pO2/FiO2 Ratio 21.0 % VBG pH 7.26 L (7.32-7.42) VBG pCO2 at Pat Temp 29 L (42-55) mm/Hg VBG pO2 at Pat Temp 28 (25-40) mm/Hg VBG HCO3 13.0 L* (22-28) meq/L VBG O2 Sat (Marcial) 47.2 L (95-100) VBG Base Excess -12.6 L (-2.0-2.0) VBG Hemoglobin 14.4 VBG Carboxyhemoglobin 2.1 (0.0-6.9) % T HGB POC Potassium 3.9 (3.5-5.1) Sodium (135-145) mmol/L Sodium Direct 137 L (138-146) mmol/L Potassium 3.7 (3.5-5.1) mmol/L Chloride 107 (98-107) mmol/L Carbon Dioxide 16 L (22-30) mmol/L Anion Gap (5-15) MEQ/L BUN (9-20) mg/dL Venous BUN 7 L (8-26) mg/dL Creatinine 0.6 (0.66-1.25) mg/dL Estimated GFR ML/MIN Glucose 259 H (74-106) mg/dL POC Glucometer (74 to 106) mg/dL Lactic Acid (0.4-2.0) Calcium (8.4-10.2) mg/dL Ionized Calcium 1.18 (1.12-1.32) mmol/L Magnesium (1.6-2.3) mg/dL Total Bilirubin (0.2-1.3) mg/dL AST (17-59) U/L ALT (0-50) U/L Alkaline Phosphatase (38-126) U/L Serum Total Protein (6.3-8.2) g/dL Albumin (3.5-5.0) g/dL Urine Color Yellow (Yellow) Urine Appearance Clear (Clear) Urine pH 5.5 (4.6-8.0) Ur Specific [place] >=1.030 A (1.005-1.030) Urine Protein 30 (Negative) Urine Glucose (UA) >=1000 A (Negative) mg/dL Urine Ketones >=160 A (Negative) Urine Blood Small A (Negative) Urine Nitrite Negative (Negative) Urine Bilirubin Negative (Negative) Urine Urobilinogen 0.2 (0.2) mg/dL Ur Leukocyte Esterase Negative (Negative) U Hyaline Cast (Auto) 6-10 A (0-2) /LPF Urine Microscopic RBC 0-2 (0-5) /HPF Urine Microscopic WBC 0-2 (0-5) /HPF Ur Epithelial Cells None Seen (None Seen) /HPF Urine Bacteria None Seen (None Seen) /HPF Granular Casts (None Seen) /LPF Urine Culture Reflexed YES (NO) Ethyl Alcohol (0-10) mg/dL 10/13/23 10/13/23 10/13/23 Range/Units 17:19 17:20 19:25 WBC (4.0-10.5) x10^3/uL RBC (4.1-5.6) x10^6/uL Hgb (12.5-18.0) g/dL Hct (42-50) % MCV (78-100) fL MCH (26-32) pg MCHC (32-36) g/dL RDW (11.5-14.0) % Plt Count (150-450) x10^3/uL MPV (7.5-11.0) fL Gran % (36.0-66.0) % Immature Gran % (Auto) (0.00-0.4) % Nucleat RBC Rel Count (0.00-0.1) % Eos # (Auto) (0-0.5) x10^3/uL Immature Gran # (Auto) (0.00-0.03) x10^3u/L Absolute Lymphs (auto) (1.0-4.6) x10^3/uL Absolute Monos (auto) (0.0-1.3) x10^3/uL Absolute Nucleated RBC (0.00-0.01) x10^3u/L Lymphocytes % (24.0-44.0) % Monocytes % (0.0-12.0) % Eosinophils % (0.00-5.0) % Basophils % (0.0-0.4) % Absolute Granulocytes (1.4-6.9) x10^3/uL Basophils # (0-0.4) x10^3/uL pO2/FiO2 Ratio % VBG pH (7.32-7.42) VBG pCO2 at Pat Temp (42-55) mm/Hg VBG pO2 at Pat Temp (25-40) mm/Hg VBG HCO3 (22-28) meq/L VBG O2 Sat (Marcial) (95-100) VBG Base Excess (-2.0-2.0) VBG Hemoglobin VBG Carboxyhemoglobin (0.0-6.9) % T HGB POC Potassium (3.5-5.1) Sodium 137 (135-145) mmol/L Sodium Direct (138-146) mmol/L Potassium 3.4 L (3.5-5.1) mmol/L Chloride 106 (98-107) mmol/L Carbon Dioxide 12 L* (22-30) mmol/L Anion Gap 22.3 H (5-15) MEQ/L BUN 6 L (9-20) mg/dL Venous BUN (8-26) mg/dL Creatinine 0.78 (0.66-1.25) mg/dL Estimated GFR 127.7 ML/MIN Glucose 256 H (74-106) mg/dL POC Glucometer 366 H (74 to 106) mg/dL Lactic Acid (0.4-2.0) Calcium 8.2 L (8.4-10.2) mg/dL Ionized Calcium (1.12-1.32) mmol/L Magnesium (1.6-2.3) mg/dL Total Bilirubin 1.60 H (0.2-1.3) mg/dL AST 23 (17-59) U/L ALT 44 (0-50) U/L Alkaline Phosphatase 140 H (38-126) U/L Serum Total Protein 7.0 (6.3-8.2) g/dL Albumin 4.1 (3.5-5.0) g/dL Urine Color Yellow (Yellow) Urine Appearance Clear (Clear) Urine pH 5.5 (4.6-8.0) Ur Specific [place] >=1.030 A (1.005-1.030) Urine Protein 30 (Negative) Urine Glucose (UA) >=1000 A (Negative) mg/dL Urine Ketones >=160 A (Negative) Urine Blood Small A (Negative) Urine Nitrite Negative (Negative) Urine Bilirubin Negative (Negative) Urine Urobilinogen 0.2 (0.2) mg/dL Ur Leukocyte Esterase Negative (Negative) U Hyaline Cast (Auto) 11-20 (0-2) /LPF Urine Microscopic RBC 0-2 (0-5) /HPF Urine Microscopic WBC 0-2 (0-5) /HPF Ur Epithelial Cells None Seen (None Seen) /HPF Urine Bacteria None Seen (None Seen) /HPF Granular Casts (None Seen) /LPF Urine Culture Reflexed NO (NO) Ethyl Alcohol (0-10) mg/dL 10/13/23 10/13/23 10/13/23 Range/Units 20:06 21:02 23:41 WBC (4.0-10.5) x10^3/uL RBC (4.1-5.6) x10^6/uL Hgb (12.5-18.0) g/dL Hct (42-50) % MCV (78-100) fL MCH (26-32) pg MCHC (32-36) g/dL RDW (11.5-14.0) % Plt Count (150-450) x10^3/uL MPV (7.5-11.0) fL Gran % (36.0-66.0) % Immature Gran % (Auto) (0.00-0.4) % Nucleat RBC Rel Count (0.00-0.1) % Eos # (Auto) (0-0.5) x10^3/uL Immature Gran # (Auto) (0.00-0.03) x10^3u/L Absolute Lymphs (auto) (1.0-4.6) x10^3/uL Absolute Monos (auto) (0.0-1.3) x10^3/uL Absolute Nucleated RBC (0.00-0.01) x10^3u/L Lymphocytes % (24.0-44.0) % Monocytes % (0.0-12.0) % Eosinophils % (0.00-5.0) % Basophils % (0.0-0.4) % Absolute Granulocytes (1.4-6.9) x10^3/uL Basophils # (0-0.4) x10^3/uL pO2/FiO2 Ratio % VBG pH (7.32-7.42) VBG pCO2 at Pat Temp (42-55) mm/Hg VBG pO2 at Pat Temp (25-40) mm/Hg VBG HCO3 (22-28) meq/L VBG O2 Sat (Marcial) (95-100) VBG Base Excess (-2.0-2.0) VBG Hemoglobin VBG Carboxyhemoglobin (0.0-6.9) % T HGB POC Potassium (3.5-5.1) Sodium (135-145) mmol/L Sodium Direct (138-146) mmol/L Potassium (3.5-5.1) mmol/L Chloride (98-107) mmol/L Carbon Dioxide (22-30) mmol/L Anion Gap (5-15) MEQ/L BUN (9-20) mg/dL Venous BUN (8-26) mg/dL Creatinine (0.66-1.25) mg/dL Estimated GFR ML/MIN Glucose (74-106) mg/dL POC Glucometer 314 H 298 H 332 H (74 to 106) mg/dL Lactic Acid (0.4-2.0) Calcium (8.4-10.2) mg/dL Ionized Calcium (1.12-1.32) mmol/L Magnesium (1.6-2.3) mg/dL Total Bilirubin (0.2-1.3) mg/dL AST (17-59) U/L ALT (0-50) U/L Alkaline Phosphatase (38-126) U/L Serum Total Protein (6.3-8.2) g/dL Albumin (3.5-5.0) g/dL Urine Color (Yellow) Urine Appearance (Clear) Urine pH (4.6-8.0) Ur Specific [place] (1.005-1.030) Urine Protein (Negative) Urine Glucose (UA) (Negative) mg/dL Urine Ketones (Negative) Urine Blood (Negative) Urine Nitrite (Negative) Urine Bilirubin (Negative) Urine Urobilinogen (0.2) mg/dL Ur Leukocyte Esterase (Negative) U Hyaline Cast (Auto) (0-2) /LPF Urine Microscopic RBC (0-5) /HPF Urine Microscopic WBC (0-5) /HPF Ur Epithelial Cells (None Seen) /HPF Urine Bacteria (None Seen) /HPF Granular Casts (None Seen) /LPF Urine Culture Reflexed (NO) Ethyl Alcohol (0-10) mg/dL 10/14/23 10/14/23 10/14/23 Range/Units 04:27 05:28 05:28 WBC 7.6 (4.0-10.5) x10^3/uL RBC 4.96 (4.1-5.6) x10^6/uL Hgb 13.8 (12.5-18.0) g/dL Hct 40.8 L (42-50) % MCV 82.3 (78-100) fL MCH 27.8 (26-32) pg MCHC 33.8 (32-36) g/dL RDW 13.3 (11.5-14.0) % Plt Count 209 (150-450) x10^3/uL MPV 10.7 (7.5-11.0) fL Gran % (36.0-66.0) % Immature Gran % (Auto) (0.00-0.4) % Nucleat RBC Rel Count (0.00-0.1) % Eos # (Auto) (0-0.5) x10^3/uL Immature Gran # (Auto) (0.00-0.03) x10^3u/L Absolute Lymphs (auto) (1.0-4.6) x10^3/uL Absolute Monos (auto) (0.0-1.3) x10^3/uL Absolute Nucleated RBC (0.00-0.01) x10^3u/L Lymphocytes % (24.0-44.0) % Monocytes % (0.0-12.0) % Eosinophils % (0.00-5.0) % Basophils % (0.0-0.4) % Absolute Granulocytes (1.4-6.9) x10^3/uL Basophils # (0-0.4) x10^3/uL pO2/FiO2 Ratio % VBG pH (7.32-7.42) VBG pCO2 at Pat Temp (42-55) mm/Hg VBG pO2 at Pat Temp (25-40) mm/Hg VBG HCO3 (22-28) meq/L VBG O2 Sat (Marcial) (95-100) VBG Base Excess (-2.0-2.0) VBG Hemoglobin VBG Carboxyhemoglobin (0.0-6.9) % T HGB POC Potassium (3.5-5.1) Sodium 136 (135-145) mmol/L Sodium Direct (138-146) mmol/L Potassium 2.7 L* D (3.5-5.1) mmol/L Chloride 104 (98-107) mmol/L Carbon Dioxide 19 L (22-30) mmol/L Anion Gap 15.3 H (5-15) MEQ/L BUN 7 L (9-20) mg/dL Venous BUN (8-26) mg/dL Creatinine 0.68 (0.66-1.25) mg/dL Estimated GFR 133.1 ML/MIN Glucose 272 H (74-106) mg/dL POC Glucometer 265 H (74 to 106) mg/dL Lactic Acid (0.4-2.0) Calcium 8.5 (8.4-10.2) mg/dL Ionized Calcium (1.12-1.32) mmol/L Magnesium (1.6-2.3) mg/dL Total Bilirubin 1.30 (0.2-1.3) mg/dL AST 32 (17-59) U/L ALT 46 (0-50) U/L Alkaline Phosphatase 113 (38-126) U/L Serum Total Protein 6.1 L (6.3-8.2) g/dL Albumin 3.4 L (3.5-5.0) g/dL Urine Color (Yellow) Urine Appearance (Clear) Urine pH (4.6-8.0) Ur Specific [place] (1.005-1.030) Urine Protein (Negative) Urine Glucose (UA) (Negative) mg/dL Urine Ketones (Negative) Urine Blood (Negative) Urine Nitrite (Negative) Urine Bilirubin (Negative) Urine Urobilinogen (0.2) mg/dL Ur Leukocyte Esterase (Negative) U Hyaline Cast (Auto) (0-2) /LPF Urine Microscopic RBC (0-5) /HPF Urine Microscopic WBC (0-5) /HPF Ur Epithelial Cells (None Seen) /HPF Urine Bacteria (None Seen) /HPF Granular Casts (None Seen) /LPF Urine Culture Reflexed (NO) Ethyl Alcohol (0-10) mg/dL 10/14/23 10/14/23 Range/Units 06:27 08:00 WBC (4.0-10.5) x10^3/uL RBC (4.1-5.6) x10^6/uL Hgb (12.5-18.0) g/dL Hct (42-50) % MCV (78-100) fL MCH (26-32) pg MCHC (32-36) g/dL RDW (11.5-14.0) % Plt Count (150-450) x10^3/uL MPV (7.5-11.0) fL Gran % (36.0-66.0) % Immature Gran % (Auto) (0.00-0.4) % Nucleat RBC Rel Count (0.00-0.1) % Eos # (Auto) (0-0.5) x10^3/uL Immature Gran # (Auto) (0.00-0.03) x10^3u/L Absolute Lymphs (auto) (1.0-4.6) x10^3/uL Absolute Monos (auto) (0.0-1.3) x10^3/uL Absolute Nucleated RBC (0.00-0.01) x10^3u/L Lymphocytes % (24.0-44.0) % Monocytes % (0.0-12.0) % Eosinophils % (0.00-5.0) % Basophils % (0.0-0.4) % Absolute Granulocytes (1.4-6.9) x10^3/uL Basophils # (0-0.4) x10^3/uL pO2/FiO2 Ratio % VBG pH (7.32-7.42) VBG pCO2 at Pat Temp (42-55) mm/Hg VBG pO2 at Pat Temp (25-40) mm/Hg VBG HCO3 (22-28) meq/L VBG O2 Sat (Marcial) (95-100) VBG Base Excess (-2.0-2.0) VBG Hemoglobin VBG Carboxyhemoglobin (0.0-6.9) % T HGB POC Potassium (3.5-5.1) Sodium (135-145) mmol/L Sodium Direct (138-146) mmol/L Potassium (3.5-5.1) mmol/L Chloride (98-107) mmol/L Carbon Dioxide (22-30) mmol/L Anion Gap (5-15) MEQ/L BUN (9-20) mg/dL Venous BUN (8-26) mg/dL Creatinine (0.66-1.25) mg/dL Estimated GFR ML/MIN Glucose (74-106) mg/dL POC Glucometer 236 H (74 to 106) mg/dL Lactic Acid (0.4-2.0) Calcium (8.4-10.2) mg/dL Ionized Calcium (1.12-1.32) mmol/L Magnesium 1.8 (1.6-2.3) mg/dL Total Bilirubin (0.2-1.3) mg/dL AST (17-59) U/L ALT (0-50) U/L Alkaline Phosphatase (38-126) U/L Serum Total Protein (6.3-8.2) g/dL Albumin (3.5-5.0) g/dL Urine Color (Yellow) Urine Appearance (Clear) Urine pH (4.6-8.0) Ur Specific [place] (1.005-1.030) Urine Protein (Negative) Urine Glucose (UA) (Negative) mg/dL Urine Ketones (Negative) Urine Blood (Negative) Urine Nitrite (Negative) Urine Bilirubin (Negative) Urine Urobilinogen (0.2) mg/dL Ur Leukocyte Esterase (Negative) U Hyaline Cast (Auto) (0-2) /LPF Urine Microscopic RBC (0-5) /HPF Urine Microscopic WBC (0-5) /HPF Ur Epithelial Cells (None Seen) /HPF Urine Bacteria (None Seen) /HPF Granular Casts (None Seen) /LPF Urine Culture Reflexed (NO) Ethyl Alcohol (0-10) mg/dL <YOJANA YANG - Last Filed: 10/14/23 09:26> Vital Signs: Vital Signs - 24 hr Temp Pulse Resp BP Pulse Ox 10/14/23 16:00 97.2 F 61 17 118/67 97 10/14/23 12:00 97.2 F 66 17 115/66 98 10/14/23 07:44 97 F 57 L 17 116/70 98 10/14/23 04:15 97.8 F 62 18 123/67 98 10/13/23 23:55 97.8 F 77 18 133/67 98 10/13/23 20:32 97.0 F 77 18 131/79 97 10/13/23 19:10 72 24 97 10/13/23 19:06 83 24 97 10/13/23 18:50 79 21 98 10/13/23 18:40 77 28 H 98 10/13/23 18:30 78 30 H 99 10/13/23 18:20 75 22 99 10/13/23 18:10 76 24 99 10/13/23 18:00 86 24 99 10/13/23 17:50 73 28 H 99 10/13/23 17:40 77 27 H 99 Pain Assessment - Last Documented Pain Intensity 0 Intake and Output: Intake & Output 10/12/23 10/13/23 10/14/23 10/15/23 11:59 11:59 11:59 11:59 Intake Total 1320 120 Balance 1320 120 Weight 85.9 kg 85.9 kg Lab Results: Lab Results-Last 24 Hours 10/13/23 10/13/23 10/13/23 Range/Units 00:25 11:18 17:19 WBC (4.0-10.5) x10^3/uL RBC (4.1-5.6) x10^6/uL Hgb (12.5-18.0) g/dL Hct (42-50) % MCV (78-100) fL MCH (26-32) pg MCHC (32-36) g/dL RDW (11.5-14.0) % Plt Count (150-450) x10^3/uL MPV (7.5-11.0) fL Sodium 135 134 L (135-145) mmol/L Potassium 3.2 L 3.9 D (3.5-5.1) mmol/L Chloride 106 103 (98-107) mmol/L Carbon Dioxide 11 L* 7 L* (22-30) mmol/L Anion Gap 21.5 H 28.3 H (5-15) MEQ/L BUN 7 L 9 (9-20) mg/dL Creatinine 0.84 0.90 (0.66-1.25) mg/dL Estimated GFR 124.9 122.3 ML/MIN Glucose 354 H 347 H (74-106) mg/dL POC Glucometer (74 to 106) mg/dL Calcium 8.3 L 9.4 (8.4-10.2) mg/dL Magnesium 2.0 (1.6-2.3) mg/dL Total Bilirubin 1.30 (0.2-1.3) mg/dL AST 23 (17-59) U/L ALT 54 H (0-50) U/L Alkaline Phosphatase 191 H (38-126) U/L Serum Total Protein 8.4 H (6.3-8.2) g/dL Albumin 4.9 (3.5-5.0) g/dL Urine Color Yellow (Yellow) Urine Appearance Clear (Clear) Urine pH 5.5 (4.6-8.0) Ur Specific [place] >=1.030 A (1.005-1.030) Urine Protein 30 (Negative) Urine Glucose (UA) >=1000 A (Negative) mg/dL Urine Ketones >=160 A (Negative) Urine Blood Small A (Negative) Urine Nitrite Negative (Negative) Urine Bilirubin Negative (Negative) Urine Urobilinogen 0.2 (0.2) mg/dL Ur Leukocyte Esterase Negative (Negative) U Hyaline Cast (Auto) 11-20 (0-2) /LPF Urine Microscopic RBC 0-2 (0-5) /HPF Urine Microscopic WBC 0-2 (0-5) /HPF Ur Epithelial Cells None Seen (None Seen) /HPF Urine Bacteria None Seen (None Seen) /HPF Urine Culture Reflexed NO (NO) Ethyl Alcohol < 10 (0-10) mg/dL 10/13/23 10/13/23 10/13/23 Range/Units 17:20 19:25 20:06 WBC (4.0-10.5) x10^3/uL RBC (4.1-5.6) x10^6/uL Hgb (12.5-18.0) g/dL Hct (42-50) % MCV (78-100) fL MCH (26-32) pg MCHC (32-36) g/dL RDW (11.5-14.0) % Plt Count (150-450) x10^3/uL MPV (7.5-11.0) fL Sodium 137 (135-145) mmol/L Potassium 3.4 L (3.5-5.1) mmol/L Chloride 106 (98-107) mmol/L Carbon Dioxide 12 L* (22-30) mmol/L Anion Gap 22.3 H (5-15) MEQ/L BUN 6 L (9-20) mg/dL Creatinine 0.78 (0.66-1.25) mg/dL Estimated GFR 127.7 ML/MIN Glucose 256 H (74-106) mg/dL POC Glucometer 366 H 314 H (74 to 106) mg/dL Calcium 8.2 L (8.4-10.2) mg/dL Magnesium (1.6-2.3) mg/dL Total Bilirubin 1.60 H (0.2-1.3) mg/dL AST 23 (17-59) U/L ALT 44 (0-50) U/L Alkaline Phosphatase 140 H (38-126) U/L Serum Total Protein 7.0 (6.3-8.2) g/dL Albumin 4.1 (3.5-5.0) g/dL Urine Color (Yellow) Urine Appearance (Clear) Urine pH (4.6-8.0) Ur Specific [place] (1.005-1.030) Urine Protein (Negative) Urine Glucose (UA) (Negative) mg/dL Urine Ketones (Negative) Urine Blood (Negative) Urine Nitrite (Negative) Urine Bilirubin (Negative) Urine Urobilinogen (0.2) mg/dL Ur Leukocyte Esterase (Negative) U Hyaline Cast (Auto) (0-2) /LPF Urine Microscopic RBC (0-5) /HPF Urine Microscopic WBC (0-5) /HPF Ur Epithelial Cells (None Seen) /HPF Urine Bacteria (None Seen) /HPF Urine Culture Reflexed (NO) Ethyl Alcohol (0-10) mg/dL 10/13/23 10/13/23 10/14/23 Range/Units 21:02 23:41 04:27 WBC (4.0-10.5) x10^3/uL RBC (4.1-5.6) x10^6/uL Hgb (12.5-18.0) g/dL Hct (42-50) % MCV (78-100) fL MCH (26-32) pg MCHC (32-36) g/dL RDW (11.5-14.0) % Plt Count (150-450) x10^3/uL MPV (7.5-11.0) fL Sodium (135-145) mmol/L Potassium (3.5-5.1) mmol/L Chloride (98-107) mmol/L Carbon Dioxide (22-30) mmol/L Anion Gap (5-15) MEQ/L BUN (9-20) mg/dL Creatinine (0.66-1.25) mg/dL Estimated GFR ML/MIN Glucose (74-106) mg/dL POC Glucometer 298 H 332 H 265 H (74 to 106) mg/dL Calcium (8.4-10.2) mg/dL Magnesium (1.6-2.3) mg/dL Total Bilirubin (0.2-1.3) mg/dL AST (17-59) U/L ALT (0-50) U/L Alkaline Phosphatase (38-126) U/L Serum Total Protein (6.3-8.2) g/dL Albumin (3.5-5.0) g/dL Urine Color (Yellow) Urine Appearance (Clear) Urine pH (4.6-8.0) Ur Specific [place] (1.005-1.030) Urine Protein (Negative) Urine Glucose (UA) (Negative) mg/dL Urine Ketones (Negative) Urine Blood (Negative) Urine Nitrite (Negative) Urine Bilirubin (Negative) Urine Urobilinogen (0.2) mg/dL Ur Leukocyte Esterase (Negative) U Hyaline Cast (Auto) (0-2) /LPF Urine Microscopic RBC (0-5) /HPF Urine Microscopic WBC (0-5) /HPF Ur Epithelial Cells (None Seen) /HPF Urine Bacteria (None Seen) /HPF Urine Culture Reflexed (NO) Ethyl Alcohol (0-10) mg/dL 10/14/23 10/14/23 10/14/23 Range/Units 05:28 05:28 06:27 WBC 7.6 (4.0-10.5) x10^3/uL RBC 4.96 (4.1-5.6) x10^6/uL Hgb 13.8 (12.5-18.0) g/dL Hct 40.8 L (42-50) % MCV 82.3 (78-100) fL MCH 27.8 (26-32) pg MCHC 33.8 (32-36) g/dL RDW 13.3 (11.5-14.0) % Plt Count 209 (150-450) x10^3/uL MPV 10.7 (7.5-11.0) fL Sodium 136 (135-145) mmol/L Potassium 2.7 L* D (3.5-5.1) mmol/L Chloride 104 (98-107) mmol/L Carbon Dioxide 19 L (22-30) mmol/L Anion Gap 15.3 H (5-15) MEQ/L BUN 7 L (9-20) mg/dL Creatinine 0.68 (0.66-1.25) mg/dL Estimated GFR 133.1 ML/MIN Glucose 272 H (74-106) mg/dL POC Glucometer (74 to 106) mg/dL Calcium 8.5 (8.4-10.2) mg/dL Magnesium 1.8 (1.6-2.3) mg/dL Total Bilirubin 1.30 (0.2-1.3) mg/dL AST 32 (17-59) U/L ALT 46 (0-50) U/L Alkaline Phosphatase 113 (38-126) U/L Serum Total Protein 6.1 L (6.3-8.2) g/dL Albumin 3.4 L (3.5-5.0) g/dL Urine Color (Yellow) Urine Appearance (Clear) Urine pH (4.6-8.0) Ur Specific [place] (1.005-1.030) Urine Protein (Negative) Urine Glucose (UA) (Negative) mg/dL Urine Ketones (Negative) Urine Blood (Negative) Urine Nitrite (Negative) Urine Bilirubin (Negative) Urine Urobilinogen (0.2) mg/dL Ur Leukocyte Esterase (Negative) U Hyaline Cast (Auto) (0-2) /LPF Urine Microscopic RBC (0-5) /HPF Urine Microscopic WBC (0-5) /HPF Ur Epithelial Cells (None Seen) /HPF Urine Bacteria (None Seen) /HPF Urine Culture Reflexed (NO) Ethyl Alcohol (0-10) mg/dL 10/14/23 10/14/23 10/14/23 Range/Units 08:00 10:00 12:09 WBC (4.0-10.5) x10^3/uL RBC (4.1-5.6) x10^6/uL Hgb (12.5-18.0) g/dL Hct (42-50) % MCV (78-100) fL MCH (26-32) pg MCHC (32-36) g/dL RDW (11.5-14.0) % Plt Count (150-450) x10^3/uL MPV (7.5-11.0) fL Sodium (135-145) mmol/L Potassium 2.9 L* (3.5-5.1) mmol/L Chloride (98-107) mmol/L Carbon Dioxide (22-30) mmol/L Anion Gap (5-15) MEQ/L BUN (9-20) mg/dL Creatinine (0.66-1.25) mg/dL Estimated GFR ML/MIN Glucose (74-106) mg/dL POC Glucometer 236 H 284 H (74 to 106) mg/dL Calcium (8.4-10.2) mg/dL Magnesium (1.6-2.3) mg/dL Total Bilirubin (0.2-1.3) mg/dL AST (17-59) U/L ALT (0-50) U/L Alkaline Phosphatase (38-126) U/L Serum Total Protein (6.3-8.2) g/dL Albumin (3.5-5.0) g/dL Urine Color (Yellow) Urine Appearance (Clear) Urine pH (4.6-8.0) Ur Specific [place] (1.005-1.030) Urine Protein (Negative) Urine Glucose (UA) (Negative) mg/dL Urine Ketones (Negative) Urine Blood (Negative) Urine Nitrite (Negative) Urine Bilirubin (Negative) Urine Urobilinogen (0.2) mg/dL Ur Leukocyte Esterase (Negative) U Hyaline Cast (Auto) (0-2) /LPF Urine Microscopic RBC (0-5) /HPF Urine Microscopic WBC (0-5) /HPF Ur Epithelial Cells (None Seen) /HPF Urine Bacteria (None Seen) /HPF Urine Culture Reflexed (NO) Ethyl Alcohol (0-10) mg/dL 10/14/23 Range/Units 16:45 WBC (4.0-10.5) x10^3/uL RBC (4.1-5.6) x10^6/uL Hgb (12.5-18.0) g/dL Hct (42-50) % MCV (78-100) fL MCH (26-32) pg MCHC (32-36) g/dL RDW (11.5-14.0) % Plt Count (150-450) x10^3/uL MPV (7.5-11.0) fL Sodium (135-145) mmol/L Potassium (3.5-5.1) mmol/L Chloride (98-107) mmol/L Carbon Dioxide (22-30) mmol/L Anion Gap (5-15) MEQ/L BUN (9-20) mg/dL Creatinine (0.66-1.25) mg/dL Estimated GFR ML/MIN Glucose (74-106) mg/dL POC Glucometer 211 H (74 to 106) mg/dL Calcium (8.4-10.2) mg/dL Magnesium (1.6-2.3) mg/dL Total Bilirubin (0.2-1.3) mg/dL AST (17-59) U/L ALT (0-50) U/L Alkaline Phosphatase (38-126) U/L Serum Total Protein (6.3-8.2) g/dL Albumin (3.5-5.0) g/dL Urine Color (Yellow) Urine Appearance (Clear) Urine pH (4.6-8.0) Ur Specific [place] (1.005-1.030) Urine Protein (Negative) Urine Glucose (UA) (Negative) mg/dL Urine Ketones (Negative) Urine Blood (Negative) Urine Nitrite (Negative) Urine Bilirubin (Negative) Urine Urobilinogen (0.2) mg/dL Ur Leukocyte Esterase (Negative) U Hyaline Cast (Auto) (0-2) /LPF Urine Microscopic RBC (0-5) /HPF Urine Microscopic WBC (0-5) /HPF Ur Epithelial Cells (None Seen) /HPF Urine Bacteria (None Seen) /HPF Urine Culture Reflexed (NO) Ethyl Alcohol (0-10) mg/dL Multi-Disciplinary Progress Notes: Multi-Disciplinary Progress Notes 10/14/23 11:46 Case Management Note by Kathryn You 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 HE REPORTS HE IS INDEPENDENT WITH ADLS AT HOME AND HAS FAMILY THAT CAN HELP HIM IF NEEDED. HE REPORTS HE HAS GLUCOMETER AND SUPPLIES AT HOME.HE REPORTS HE HAS MONEY TO AFFORD HIS MEDICATIONS AT DC. HE REPORTS HIS HOME IS SAFE WITH ALL UTILITIES AND THAT HE HAS MONEY FOR FOOD AND GROCERIES. HE DENIES ANY NEW NEEDS AT THIS TIME. YOJANA LOZANO NOTIFIED THAT [facility] HAS THE CHEAPEST INSULIN IF INSULIN IS NEEDED. PRIMARY RN NOTIFIED TO CHECK PRICING ON ALL RX AT TIME OF DC TO BE SURE HE CAN AFFORD THEM BEFORE HE LEAVES. PER ER REPORT PATIENT ALREADY HAS A FOLLOW UP APT. NEXT WEEK BUT INFORMATION ON THE DISCOUNTED MEDICAL CLINIC IN [place] ([facility]) PLACED IN HIS DC INSTRUCTIONS WELL Initialized on 10/14/23 11:46 - END OF NOTE <GRACIA CHAPARRO - Last Filed: 10/14/23 17:36> Assessment/Plan (1) DKA (diabetic ketoacidosis) Current Visit: Yes Status: Acute Assessment & Plan: AGMA due to DKA. SSI, IVF. ER gave 3 liters of IVF already. HCO3 has improved to 16. Ok to monitor on the floor with SSI for now, but low threshold for ICU admission and insulin drip. Bicarb drip. Check BS every 4 hrs. Will recheck BMP at midnight. CM to help him set up with a PCP in the area to help with meds and DM management 10/13: -HCO3 level improved to 19, bicarb gtt discontinued -BS levels improved to 236 -Continue SSI with meal time lispro -A1c level -ADA diet -d/c fluids Code(s): E11.10 - TYPE 2 DIABETES MELLITUS WITH KETOACIDOSIS WITHOUT COMA (2) Hypokalemia Current Visit: Yes Status: Acute Assessment & Plan: Due to DKA, and poor intake. Will replace and monitor 10/13: -labs reviewed noting 2.7 potassium, 40 Meq given, will recheck and replenish as appropriate -mag level wnl Code(s): E87.6 - HYPOKALEMIA (3) DMII (diabetes mellitus, type 2) Current Visit: Yes Status: Acute Assessment & Plan: Not on meds at home due to lack of insurance and PCP. CM to help set him up, get him connected to local resources. ADA diet, SSI, accucheck, A1C (4) Dehydration Current Visit: No Status: Acute Assessment & Plan: IVF as above Code(s): E86.0 - DEHYDRATION Code(s): E11.10 - TYPE 2 DIABETES MELLITUS WITH KETOACIDOSIS WITHOUT COMA (2) DMII (diabetes mellitus, type 2) Current Visit: Yes Status: Acute (3) Hypokalemia Current Visit: Yes Status: Acute Code(s): E87.6 - HYPOKALEMIA (4) Non compliance w medication regimen Current Visit: Yes Status: Acute Code(s): Z91.148 - PATIENT'S OTHER NONCOMPL WITH MEDS REGIMEN FOR OTHER REASON (5) Dehydration Current Visit: No Status: Acute Code(s): E86.0 - DEHYDRATION <YOJANA YANG - Last Filed: 10/14/23 09:26> KRISTINA Encounter - KRISTINA Encounter Attestation KRISTINA Encounter Attestation: "IhavepersonallyseenandexamineRONI Huber andhavediscussed pertinent aspects of their care with Yojana Jaime agree with the history, physical exam (any modifications based on my personal exam will be noted below), assessment, and plan as outlined in original note. Please see immediately below for my summary of findings and additional assessment and plan along with any meaningful corrections/explanations to the Subjective/Objective portions of the KRISTINA note will be noted." My portion of the encounter took place via telemedicine. -DKA with previous diagnosis of non insulin dependent diabetes. Patient will likely need to be on insulin at least in the short term. Start basal/bolus regimen. Await HgA1C <GRACIA CHAPARRO - Last Filed: 10/14/23 17:36>
[2023-10-14] MEDS ORDERED: HUMALOG SQ SCH (12:00)
[2023-10-14] MEDS: POTASSIUM CHLORIDE 20 mEq IN WATER 100ML 20 MEQ/100 ML BAG IV ONE (13:47)
[2023-10-14] MEDS: Lantus Insulin SQ SCH (13:48)
[2023-10-14] MEDS: HUMALOG SQ PRN (13:48)
[2023-10-14] MEDS: ENOXAPARIN SODIUM SQ SCH (14:13)
[2023-10-14 18:11] LABS: ALBUMIN 3.8 g/dL (3.5-5.0); BILIRUBIN,TOTAL 1.2 mg/dL (0.2-1.3); Calcium 8.9 mg/dL (8.4-10.2); Creatinine 1 0.67 mg/dL (0.66-1.25); EST GLOMERULAR FILTRATION RATE 133.7 ML/MIN; Potassium 3.1 mmol/L (3.5-5.1); Total Protein 6.7 g/dL (6.3-8.2)
[2023-10-14] MEDS: Klor Con PO SCH (20:03)
[2023-10-15 05:56] LABS: Absolute Neutrophil Ct (ANC) 4.45 x10^3/uL (1.4-6.9); BASOPHIL % 0.4 % (0.0-0.4); Basophil (Absolute #) 0.03 x10^3/uL (0-0.4); Eosinophil % 1.6 % (0.00-5.0); Eosinophil (Absolute #) 0.12 x10^3/uL (0-0.5); Hematocrit 39.9 % (42-50); Hemoglobin 13.3 g/dL (12.5-18.0); IMMATURE GRAN # 0.04 x10^3u/L (0.00-0.03); IMMATURE GRAN % 0.5 % (0.00-0.4); Lymphocyte (Absolute #) 2.29 x10^3/uL (1.0-4.6); Lymphocytes % 30.5 % (24.0-44.0); Mean Cell Volume 83.6 fL (78-100); Mean Corpuscular Hemoglobin 27.9 pg (26-32); Mean Corpuscular Hgb Concent. 33.3 g/dL (32-36); Mean Platelet Volume 10.9 fL (7.5-11.0); Monocyte (Absolute #) 0.58 x10^3/uL (0.0-1.3); Monocytes % 7.7 % (0.0-12.0); NUCLEATED RBC # 0.07 x10^3u/L (0.00-0.01); NUCLEATED RBC % 0.9 % (0.00-0.1); Neutrophil % 59.3 % (36.0-66.0); Platelet Count 178 x10^3/uL (150-450); Red Blood Count 4.77 x10^6/uL (4.1-5.6); Red Cell Distribution Width 13.5 % (11.5-14.0); White Blood Count 7.5 x10^3/uL (4.0-10.5)
[2023-10-15 06:40] LABS: ALBUMIN 3.4 g/dL (3.5-5.0); ANION GAP 16.3 MEQ/L (5-15); BILIRUBIN,TOTAL 0.9 mg/dL (0.2-1.3); Calcium 8.6 mg/dL (8.4-10.2); Creatinine 1 0.68 mg/dL (0.66-1.25); EST GLOMERULAR FILTRATION RATE 133.1 ML/MIN; MAGNESIUM 1.8 mg/dL (1.6-2.3)
[2023-10-15 06:50] LABS: Potassium 2.9 mmol/L (3.5-5.1)
[2023-10-15] MEDS: POTASSIUM CHLORIDE 20 mEq IN WATER 100ML 100 ML IV SCH (08:11)
--- NOTE | 2023-10-15 08:17 | PCM.NOTE ---
Date and Time: 10/15/23 0812 Subjective Assessment: is a 23 year old male with hx of DMII came in with dizziness and increased thirst. He has not been taking any medication for his DM for 5 months now. He used to take oral meds for his DM but cannot recall which meds. He said he gets the medications at [facility] locally. Does not have a PCP at this time. BS in the 300s and + ketones in urine on eval here. Admitted with DKA. 10/14/23:Admitted with DKA. Endorses much improvement since admission. Labs improving, potassium was low this morning and is being replenished. Will have CM look into help with medications and getting a PCP lined up for patient. Denies fever,cough, sob, cp, abdominal pain, FERGUSON, dizziness, N/V/D. 10/15/23: Met with patient bedside. Interview via chemical dependency professional. No complaints this morning. Lab continue to improve. Glargine initiated yesterday. A1c pending, analyzer is down. Blood glucose levels now in the 100's. Potassium has continue to be low, will replenish this morning. Will need to arrange PCP on discharge,patient currently has no insurance, if patient requires insulin on discharge will use [employer] brand at [facility] which is cost effective. Patient reports that he does have glucometer, strips, and lancets at home. Discharge most likely tomorrow. <YOJANA YANG - Last Filed: 10/15/23 11:09> Date and Time: 10/15/23 1809 <GRACIA CHAPARRO - Last Filed: 10/15/23 18:10> - Review of Systems Constitutional: No Symptoms Eyes: No Symptoms Ears, Nose, & Throat: No Symptoms Respiratory: No Symptoms Cardiac: No Symptoms Abdominal/Gastrointestinal: No Symptoms Genitourinary Symptoms: No Symptoms Musculoskeletal: No Symptoms Skin: No Symptoms Neurological: No Symptoms Psychological: No Symptoms Endocrine: No Symptoms Immunological/Allergic: No Symptoms <YOJANA YANG - Last Filed: 10/15/23 11:09> Objective Exam General Appearance: no apparent distress Neurologic Exam: alert, oriented x 3, cooperative Skin Exam: normal color Eye Exam: PERRL Ears, Nose, Throat Exam: normal ENT inspection Neck Exam: normal inspection Respiratory Exam: normal breath sounds, lungs clear Cardiovascular Exam: regular rate/rhythm, normal heart sounds Gastrointestinal/Abdomen Exam: soft, normal bowel sounds Extremity Exam: normal inspection Back Exam: normal inspection Male Genitalia Exam: deferred Rectal Exam: deferred <YOJANA YANG - Last Filed: 10/15/23 11:09> Objective Data Vital Signs: Vital Signs - 24 hr Temp Pulse Resp BP Pulse Ox 10/15/23 07:31 96.8 F 68 16 119/70 99 10/15/23 04:00 97.0 F 91 H 18 119/69 99 10/15/23 00:00 97.5 F 67 18 129/73 99 10/14/23 20:00 97.1 F 71 18 127/57 98 10/14/23 16:00 97.2 F 61 17 118/67 97 10/14/23 12:00 97.2 F 66 17 115/66 98 Pain Assessment - Last Documented Pain Intensity 0 Intake and Output: Intake & Output 10/12/23 10/13/23 10/14/23 10/15/23 11:59 11:59 11:59 11:59 Intake Total 1320 3044 Balance 1320 3044 Weight 85.9 kg 85.9 kg 86 kg Lab Results: Lab Results-Last 24 Hours 10/14/23 10/14/23 10/14/23 Range/Units 10:00 12:09 16:45 WBC (4.0-10.5) x10^3/uL RBC (4.1-5.6) x10^6/uL Hgb (12.5-18.0) g/dL Hct (42-50) % MCV (78-100) fL MCH (26-32) pg MCHC (32-36) g/dL RDW (11.5-14.0) % Plt Count (150-450) x10^3/uL MPV (7.5-11.0) fL Gran % (36.0-66.0) % Immature Gran % (Auto) (0.00-0.4) % Nucleat RBC Rel Count (0.00-0.1) % Eos # (Auto) (0-0.5) x10^3/uL Immature Gran # (Auto) (0.00-0.03) x10^3u/L Absolute Lymphs (auto) (1.0-4.6) x10^3/uL Absolute Monos (auto) (0.0-1.3) x10^3/uL Absolute Nucleated RBC (0.00-0.01) x10^3u/L Lymphocytes % (24.0-44.0) % Monocytes % (0.0-12.0) % Eosinophils % (0.00-5.0) % Basophils % (0.0-0.4) % Absolute Granulocytes (1.4-6.9) x10^3/uL Basophils # (0-0.4) x10^3/uL Sodium (135-145) mmol/L Potassium 2.9 L* (3.5-5.1) mmol/L Chloride (98-107) mmol/L Carbon Dioxide (22-30) mmol/L Anion Gap (5-15) MEQ/L BUN (9-20) mg/dL Creatinine (0.66-1.25) mg/dL Estimated GFR ML/MIN Glucose (74-106) mg/dL POC Glucometer 284 H 211 H (74 to 106) mg/dL Calcium (8.4-10.2) mg/dL Magnesium (1.6-2.3) mg/dL Total Bilirubin (0.2-1.3) mg/dL AST (17-59) U/L ALT (0-50) U/L Alkaline Phosphatase (38-126) U/L Serum Total Protein (6.3-8.2) g/dL Albumin (3.5-5.0) g/dL 10/14/23 10/14/23 10/15/23 Range/Units 17:38 20:43 00:00 WBC (4.0-10.5) x10^3/uL RBC (4.1-5.6) x10^6/uL Hgb (12.5-18.0) g/dL Hct (42-50) % MCV (78-100) fL MCH (26-32) pg MCHC (32-36) g/dL RDW (11.5-14.0) % Plt Count (150-450) x10^3/uL MPV (7.5-11.0) fL Gran % (36.0-66.0) % Immature Gran % (Auto) (0.00-0.4) % Nucleat RBC Rel Count (0.00-0.1) % Eos # (Auto) (0-0.5) x10^3/uL Immature Gran # (Auto) (0.00-0.03) x10^3u/L Absolute Lymphs (auto) (1.0-4.6) x10^3/uL Absolute Monos (auto) (0.0-1.3) x10^3/uL Absolute Nucleated RBC (0.00-0.01) x10^3u/L Lymphocytes % (24.0-44.0) % Monocytes % (0.0-12.0) % Eosinophils % (0.00-5.0) % Basophils % (0.0-0.4) % Absolute Granulocytes (1.4-6.9) x10^3/uL Basophils # (0-0.4) x10^3/uL Sodium 137 (135-145) mmol/L Potassium 3.1 L (3.5-5.1) mmol/L Chloride 103 (98-107) mmol/L Carbon Dioxide 21 L (22-30) mmol/L Anion Gap 17.0 H (5-15) MEQ/L BUN 6 L (9-20) mg/dL Creatinine 0.67 (0.66-1.25) mg/dL Estimated GFR 133.7 ML/MIN Glucose 230 H (74-106) mg/dL POC Glucometer 380 H 234 H (74 to 106) mg/dL Calcium 8.9 (8.4-10.2) mg/dL Magnesium (1.6-2.3) mg/dL Total Bilirubin 1.20 (0.2-1.3) mg/dL AST 49 (17-59) U/L ALT 63 H (0-50) U/L Alkaline Phosphatase 117 (38-126) U/L Serum Total Protein 6.7 (6.3-8.2) g/dL Albumin 3.8 (3.5-5.0) g/dL 10/15/23 10/15/23 10/15/23 Range/Units 04:07 05:47 05:47 WBC 7.5 (4.0-10.5) x10^3/uL RBC 4.77 (4.1-5.6) x10^6/uL Hgb 13.3 (12.5-18.0) g/dL Hct 39.9 L (42-50) % MCV 83.6 (78-100) fL MCH 27.9 (26-32) pg MCHC 33.3 (32-36) g/dL RDW 13.5 (11.5-14.0) % Plt Count 178 (150-450) x10^3/uL MPV 10.9 (7.5-11.0) fL Gran % 59.3 (36.0-66.0) % Immature Gran % (Auto) 0.5 H (0.00-0.4) % Nucleat RBC Rel Count 0.9 H (0.00-0.1) % Eos # (Auto) 0.12 (0-0.5) x10^3/uL Immature Gran # (Auto) 0.04 H (0.00-0.03) x10^3u/L Absolute Lymphs (auto) 2.29 (1.0-4.6) x10^3/uL Absolute Monos (auto) 0.58 (0.0-1.3) x10^3/uL Absolute Nucleated RBC 0.07 H (0.00-0.01) x10^3u/L Lymphocytes % 30.5 (24.0-44.0) % Monocytes % 7.7 (0.0-12.0) % Eosinophils % 1.6 (0.00-5.0) % Basophils % 0.4 (0.0-0.4) % Absolute Granulocytes 4.45 (1.4-6.9) x10^3/uL Basophils # 0.03 (0-0.4) x10^3/uL Sodium 137 (135-145) mmol/L Potassium 2.9 L* (3.5-5.1) mmol/L Chloride 105 (98-107) mmol/L Carbon Dioxide 19 L (22-30) mmol/L Anion Gap 16.3 H (5-15) MEQ/L BUN 9 (9-20) mg/dL Creatinine 0.68 (0.66-1.25) mg/dL Estimated GFR 133.1 ML/MIN Glucose 210 H (74-106) mg/dL POC Glucometer 209 H (74 to 106) mg/dL Calcium 8.6 (8.4-10.2) mg/dL Magnesium 1.8 (1.6-2.3) mg/dL Total Bilirubin 0.90 (0.2-1.3) mg/dL AST 30 (17-59) U/L ALT 49 (0-50) U/L Alkaline Phosphatase 115 (38-126) U/L Serum Total Protein 6.0 L (6.3-8.2) g/dL Albumin 3.4 L (3.5-5.0) g/dL 10/14/ Range/Units 07:21 WBC (4.0-10.5) x10^3/uL RBC (4.1-5.6) x10^6/uL Hgb (12.5-18.0) g/dL Hct (42-50) % MCV (78-100) fL MCH (26-32) pg MCHC (32-36) g/dL RDW (11.5-14.0) % Plt Count (150-450) x10^3/uL MPV (7.5-11.0) fL Gran % (36.0-66.0) % Immature Gran % (Auto) (0.00-0.4) % Nucleat RBC Rel Count (0.00-0.1) % Eos # (Auto) (0-0.5) x10^3/uL Immature Gran # (Auto) (0.00-0.03) x10^3u/L Absolute Lymphs (auto) (1.0-4.6) x10^3/uL Absolute Monos (auto) (0.0-1.3) x10^3/uL Absolute Nucleated RBC (0.00-0.01) x10^3u/L Lymphocytes % (24.0-44.0) % Monocytes % (0.0-12.0) % Eosinophils % (0.00-5.0) % Basophils % (0.0-0.4) % Absolute Granulocytes (1.4-6.9) x10^3/uL Basophils # (0-0.4) x10^3/uL Sodium (135-145) mmol/L Potassium (3.5-5.1) mmol/L Chloride (98-107) mmol/L Carbon Dioxide (22-30) mmol/L Anion Gap (5-15) MEQ/L BUN (9-20) mg/dL Creatinine (0.66-1.25) mg/dL Estimated GFR ML/MIN Glucose (74-106) mg/dL POC Glucometer 174 H (74 to 106) mg/dL Calcium (8.4-10.2) mg/dL Magnesium (1.6-2.3) mg/dL Total Bilirubin (0.2-1.3) mg/dL AST (17-59) U/L ALT (0-50) U/L Alkaline Phosphatase (38-126) U/L Serum Total Protein (6.3-8.2) g/dL Albumin (3.5-5.0) g/dL Multi-Disciplinary Progress Notes: Multi-Disciplinary Progress Notes 10/14/23 11:46 Case Management Note by Kathryn You 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 HE REPORTS HE IS INDEPENDENT WITH ADLS AT HOME AND HAS FAMILY THAT CAN HELP HIM IF NEEDED. HE REPORTS HE HAS GLUCOMETER AND SUPPLIES AT HOME.HE REPORTS HE HAS MONEY TO AFFORD HIS MEDICATIONS AT DC. HE REPORTS HIS HOME IS SAFE WITH ALL UTILITIES AND THAT HE HAS MONEY FOR FOOD AND GROCERIES. HE DENIES ANY NEW NEEDS AT THIS TIME. YOJANA LOZANO NOTIFIED THAT [facility] HAS THE CHEAPEST INSULIN IF INSULIN IS NEEDED. PRIMARY RN NOTIFIED TO CHECK PRICING ON ALL RX AT TIME OF DC TO BE SURE HE CAN AFFORD THEM BEFORE HE LEAVES. PER ER REPORT PATIENT ALREADY HAS A FOLLOW UP APT. NEXT WEEK BUT INFORMATION ON THE DISCOUNTED MEDICAL CLINIC IN [place] ([facility]) PLACED IN HIS DC INSTRUCTIONS WELL Initialized on 10/14/23 11:46 - END OF NOTE <YOJANA YANG - Last Filed: 10/15/23 11:09> Vital Signs: Vital Signs - 24 hr Temp Pulse Resp BP Pulse Ox 10/15/23 16:00 96.7 F 62 16 119/67 97 10/15/23 12:00 97 F 66 16 110/65 98 10/15/23 07:31 96.8 F 68 16 119/70 99 10/15/23 04:00 97.0 F 91 H 18 119/69 99 10/15/23 00:00 97.5 F 67 18 129/73 99 10/14/23 20:00 97.1 F 71 18 127/57 98 Pain Assessment - Last Documented Pain Intensity 0 Intake and Output: Intake & Output 10/13/23 10/14/23 10/15/23 10/16/23 11:59 11:59 11:59 11:59 Intake Total 1320 3284 240 Balance 1320 3284 240 Weight 85.9 kg 85.9 kg 86 kg Lab Results: Lab Results-Last 24 Hours 10/14/23 10/14/23 10/14/23 Range/Units 05:00 17:38 20:43 WBC (4.0-10.5) x10^3/uL RBC (4.1-5.6) x10^6/uL Hgb (12.5-18.0) g/dL Hct (42-50) % MCV (78-100) fL MCH (26-32) pg MCHC (32-36) g/dL RDW (11.5-14.0) % Plt Count (150-450) x10^3/uL MPV (7.5-11.0) fL Gran % (36.0-66.0) % Immature Gran % (Auto) (0.00-0.4) % Nucleat RBC Rel Count (0.00-0.1) % Eos # (Auto) (0-0.5) x10^3/uL Immature Gran # (Auto) (0.00-0.03) x10^3u/L Absolute Lymphs (auto) (1.0-4.6) x10^3/uL Absolute Monos (auto) (0.0-1.3) x10^3/uL Absolute Nucleated RBC (0.00-0.01) x10^3u/L Lymphocytes % (24.0-44.0) % Monocytes % (0.0-12.0) % Eosinophils % (0.00-5.0) % Basophils % (0.0-0.4) % Absolute Granulocytes (1.4-6.9) x10^3/uL Basophils # (0-0.4) x10^3/uL Sodium 137 (135-145) mmol/L Potassium 3.1 L (3.5-5.1) mmol/L Chloride 103 (98-107) mmol/L Carbon Dioxide 21 L (22-30) mmol/L Anion Gap 17.0 H (5-15) MEQ/L BUN 6 L (9-20) mg/dL Creatinine 0.67 (0.66-1.25) mg/dL Estimated GFR 133.7 ML/MIN Glucose 230 H (74-106) mg/dL POC Glucometer 380 H (74 to 106) mg/dL Hemoglobin A1c 13.6 H (4.8-5.6) % Calcium 8.9 (8.4-10.2) mg/dL Magnesium (1.6-2.3) mg/dL Total Bilirubin 1.20 (0.2-1.3) mg/dL AST 49 (17-59) U/L ALT 63 H (0-50) U/L Alkaline Phosphatase 117 (38-126) U/L Serum Total Protein 6.7 (6.3-8.2) g/dL Albumin 3.8 (3.5-5.0) g/dL 10/15/23 10/15/23 10/15/23 Range/Units 00:00 04:07 05:47 WBC 7.5 (4.0-10.5) x10^3/uL RBC 4.77 (4.1-5.6) x10^6/uL Hgb 13.3 (12.5-18.0) g/dL Hct 39.9 L (42-50) % MCV 83.6 (78-100) fL MCH 27.9 (26-32) pg MCHC 33.3 (32-36) g/dL RDW 13.5 (11.5-14.0) % Plt Count 178 (150-450) x10^3/uL MPV 10.9 (7.5-11.0) fL Gran % 59.3 (36.0-66.0) % Immature Gran % (Auto) 0.5 H (0.00-0.4) % Nucleat RBC Rel Count 0.9 H (0.00-0.1) % Eos # (Auto) 0.12 (0-0.5) x10^3/uL Immature Gran # (Auto) 0.04 H (0.00-0.03) x10^3u/L Absolute Lymphs (auto) 2.29 (1.0-4.6) x10^3/uL Absolute Monos (auto) 0.58 (0.0-1.3) x10^3/uL Absolute Nucleated RBC 0.07 H (0.00-0.01) x10^3u/L Lymphocytes % 30.5 (24.0-44.0) % Monocytes % 7.7 (0.0-12.0) % Eosinophils % 1.6 (0.00-5.0) % Basophils % 0.4 (0.0-0.4) % Absolute Granulocytes 4.45 (1.4-6.9) x10^3/uL Basophils # 0.03 (0-0.4) x10^3/uL Sodium (135-145) mmol/L Potassium (3.5-5.1) mmol/L Chloride (98-107) mmol/L Carbon Dioxide (22-30) mmol/L Anion Gap (5-15) MEQ/L BUN (9-20) mg/dL Creatinine (0.66-1.25) mg/dL Estimated GFR ML/MIN Glucose (74-106) mg/dL POC Glucometer 234 H 209 H (74 to 106) mg/dL Hemoglobin A1c (4.8-5.6) % Calcium (8.4-10.2) mg/dL Magnesium (1.6-2.3) mg/dL Total Bilirubin (0.2-1.3) mg/dL AST (17-59) U/L ALT (0-50) U/L Alkaline Phosphatase (38-126) U/L Serum Total Protein (6.3-8.2) g/dL Albumin (3.5-5.0) g/dL 10/15/23 10/15/23 10/15/23 Range/Units 05:47 07:21 11:58 WBC (4.0-10.5) x10^3/uL RBC (4.1-5.6) x10^6/uL Hgb (12.5-18.0) g/dL Hct (42-50) % MCV (78-100) fL MCH (26-32) pg MCHC (32-36) g/dL RDW (11.5-14.0) % Plt Count (150-450) x10^3/uL MPV (7.5-11.0) fL Gran % (36.0-66.0) % Immature Gran % (Auto) (0.00-0.4) % Nucleat RBC Rel Count (0.00-0.1) % Eos # (Auto) (0-0.5) x10^3/uL Immature Gran # (Auto) (0.00-0.03) x10^3u/L Absolute Lymphs (auto) (1.0-4.6) x10^3/uL Absolute Monos (auto) (0.0-1.3) x10^3/uL Absolute Nucleated RBC (0.00-0.01) x10^3u/L Lymphocytes % (24.0-44.0) % Monocytes % (0.0-12.0) % Eosinophils % (0.00-5.0) % Basophils % (0.0-0.4) % Absolute Granulocytes (1.4-6.9) x10^3/uL Basophils # (0-0.4) x10^3/uL Sodium 137 (135-145) mmol/L Potassium 2.9 L* (3.5-5.1) mmol/L Chloride 105 (98-107) mmol/L Carbon Dioxide 19 L (22-30) mmol/L Anion Gap 16.3 H (5-15) MEQ/L BUN 9 (9-20) mg/dL Creatinine 0.68 (0.66-1.25) mg/dL Estimated GFR 133.1 ML/MIN Glucose 210 H (74-106) mg/dL POC Glucometer 174 H 317 H (74 to 106) mg/dL Hemoglobin A1c (4.8-5.6) % Calcium 8.6 (8.4-10.2) mg/dL Magnesium 1.8 (1.6-2.3) mg/dL Total Bilirubin 0.90 (0.2-1.3) mg/dL AST 30 (17-59) U/L ALT 49 (0-50) U/L Alkaline Phosphatase 115 (38-126) U/L Serum Total Protein 6.0 L (6.3-8.2) g/dL Albumin 3.4 L (3.5-5.0) g/dL 10/15/23 10/15/23 Range/Units 15:45 16:37 WBC (4.0-10.5) x10^3/uL RBC (4.1-5.6) x10^6/uL Hgb (12.5-18.0) g/dL Hct (42-50) % MCV (78-100) fL MCH (26-32) pg MCHC (32-36) g/dL RDW (11.5-14.0) % Plt Count (150-450) x10^3/uL MPV (7.5-11.0) fL Gran % (36.0-66.0) % Immature Gran % (Auto) (0.00-0.4) % Nucleat RBC Rel Count (0.00-0.1) % Eos # (Auto) (0-0.5) x10^3/uL Immature Gran # (Auto) (0.00-0.03) x10^3u/L Absolute Lymphs (auto) (1.0-4.6) x10^3/uL Absolute Monos (auto) (0.0-1.3) x10^3/uL Absolute Nucleated RBC (0.00-0.01) x10^3u/L Lymphocytes % (24.0-44.0) % Monocytes % (0.0-12.0) % Eosinophils % (0.00-5.0) % Basophils % (0.0-0.4) % Absolute Granulocytes (1.4-6.9) x10^3/uL Basophils # (0-0.4) x10^3/uL Sodium (135-145) mmol/L Potassium 3.5 D (3.5-5.1) mmol/L Chloride (98-107) mmol/L Carbon Dioxide (22-30) mmol/L Anion Gap (5-15) MEQ/L BUN (9-20) mg/dL Creatinine (0.66-1.25) mg/dL Estimated GFR ML/MIN Glucose (74-106) mg/dL POC Glucometer 266 H (74 to 106) mg/dL Hemoglobin A1c (4.8-5.6) % Calcium (8.4-10.2) mg/dL Magnesium (1.6-2.3) mg/dL Total Bilirubin (0.2-1.3) mg/dL AST (17-59) U/L ALT (0-50) U/L Alkaline Phosphatase (38-126) U/L Serum Total Protein (6.3-8.2) g/dL Albumin (3.5-5.0) g/dL <GRACIA CHAPARRO - Last Filed: 10/15/23 18:10> Assessment/Plan (1) DKA (diabetic ketoacidosis) Current Visit: Yes Status: Acute Assessment & Plan: AGMA due to DKA. SSI, IVF. ER gave 3 liters of IVF already. HCO3 has improved to 16. Ok to monitor on the floor with SSI for now, but low threshold for ICU admission and insulin drip. Bicarb drip. Check BS every 4 hrs. Will recheck BMP at midnight. CM to help him set up with a PCP in the area to help with meds and DM management 10/13: -HCO3 level improved to 19, bicarb gtt discontinued -BS levels improved to 236 -Continue SSI with meal time lispro -A1c level -ADA diet -d/c fluids 10/14: -Blood glucose levels have normalized, GAP closed, Glargine and SSI insulin initiated Code(s): E11.10 - TYPE 2 DIABETES MELLITUS WITH KETOACIDOSIS WITHOUT COMA (2) Hypokalemia Current Visit: Yes Status: Acute Assessment & Plan: Due to DKA, and poor intake. Will replace and monitor 10/13: -labs reviewed noting 2.7 potassium, 40 Meq given, will recheck and replenish as appropriate -mag level wnl 10/14: -potassium still low this morning at 2.9, will replenish per protocol Code(s): E87.6 - HYPOKALEMIA (3) DMII (diabetes mellitus, type 2) Current Visit: Yes Status: Acute Assessment & Plan: Not on meds at home due to lack of insurance and PCP. CM to help set him up, get him connected to local resources. ADA diet, SSI, accucheck, A1C (4) Dehydration Current Visit: No Status: Acute Assessment & Plan: IVF as above 10/14: -resolved Code(s): E86.0 - DEHYDRATION Code(s): E11.10 - TYPE 2 DIABETES MELLITUS WITH KETOACIDOSIS WITHOUT COMA (2) DMII (diabetes mellitus, type 2) Current Visit: Yes Status: Acute (3) Hypokalemia Current Visit: Yes Status: Acute Code(s): E87.6 - HYPOKALEMIA (4) Non compliance w medication regimen Current Visit: Yes Status: Acute Code(s): Z91.148 - PATIENT'S OTHER NONCOMPL WITH MEDS REGIMEN FOR OTHER REASON (5) Dehydration Current Visit: No Status: Acute Code(s): E86.0 - DEHYDRATION <YOJANA YANG - Last Filed: 10/15/23 11:09> KRISTINA Encounter - KRISTINA Encounter Attestation KRISTINA Encounter Attestation: "AjlysRONI Delgado andemiriscussed pertinent aspects of their care with [ ]and agree with the history, physical exam (any modifications based on my personal exam will be noted below), assessment, and plan as outlined in original note. Please see immediately below for my summary of findings and additional assessment and plan along with any meaningful corrections/explanations to the Subjective/Objective portions of the KRISTINA note will be noted." My portion of the encounter took place via telemedicine. -Patient interviewed via credit assistant device. Blood sugars are improving however discussed with patient that he needs diabetic teaching for initiation of insulin regimen and needs a PCP appointment which can not be arranged until tomorrow. Prefer patient staying until tomorrow to make it a safe discharge. <GRACIA CHAPARRO - Last Filed: 10/15/23 18:10>
[2023-10-15] MEDS: Sodium Chloride 0.9% 1000 ML 1,000 ML IV SCH (09:47)
[2023-10-16 05:13] LABS: Absolute Neutrophil Ct (ANC) 4.18 x10^3/uL (1.4-6.9); BASOPHIL % 0.7 % (0.0-0.4); Basophil (Absolute #) 0.05 x10^3/uL (0-0.4); Eosinophil % 1.5 % (0.00-5.0); Eosinophil (Absolute #) 0.11 x10^3/uL (0-0.5); Hematocrit 41.8 % (42-50); Hemoglobin 14.4 g/dL (12.5-18.0); IMMATURE GRAN # 0.05 x10^3u/L (0.00-0.03); IMMATURE GRAN % 0.7 % (0.00-0.4); Lymphocyte (Absolute #) 2.41 x10^3/uL (1.0-4.6); Lymphocytes % 32.2 % (24.0-44.0); Mean Cell Volume 81.3 fL (78-100); Mean Corpuscular Hgb Concent. 34.4 g/dL (32-36); Mean Platelet Volume 11.6 fL (7.5-11.0); Monocyte (Absolute #) 0.69 x10^3/uL (0.0-1.3); Monocytes % 9.2 % (0.0-12.0); Neutrophil % 55.7 % (36.0-66.0); Platelet Count 212 x10^3/uL (150-450); Red Blood Count 5.14 x10^6/uL (4.1-5.6); Red Cell Distribution Width 13.8 % (11.5-14.0); White Blood Count 7.5 x10^3/uL (4.0-10.5)
[2023-10-16 05:32] LABS: ALBUMIN 3.8 g/dL (3.5-5.0); ANION GAP 16.6 MEQ/L (5-15); BILIRUBIN,TOTAL 0.9 mg/dL (0.2-1.3); Calcium 8.9 mg/dL (8.4-10.2); Creatinine 1 0.72 mg/dL (0.66-1.25); EST GLOMERULAR FILTRATION RATE 130.8 ML/MIN; Total Protein 6.8 g/dL (6.3-8.2)
[2023-10-16 05:43] LABS: Potassium 2.9 mmol/L (3.5-5.1)
[2023-10-16 07:38] VITALS: PULSE 77
[2023-10-16] MEDS: Sodium Chloride 0.9% W/ 20 mEq KCl/LITER 1,000 ML IV SCH (08:06)
[2023-10-16] MEDS: POTASSIUM CHLORIDE 20 mEq IN WATER 100ML 100 ML IV SCH (08:14)
--- NOTE | 2023-10-16 11:03 | PCM.DS ---
Discharge Summary Date of Admission: 10/13/23 20:00 Date of Discharge: 10/16/23 Admitting Physician: JENNA MORALES DO Primary Care Provider: PHILLIP LARSEN Allergies Allergies No Known Drug Allergies Allergy (Verified 10/13/23 10:50) Hospital Summary - Hospital Course Hospital Course: is a 23 year old male with hx of DMII came in with dizziness and increased thirst on 10/12. He has not been taking any medication for his DM for 5 months now. He used to take oral meds for his DM but cannot recall which meds. He said he gets the medications at [facility] locally. Does not have a PCP at this time. BS in the 300s and + ketones in urine on admission. Admitted with DKA that has since resolved. Appointment made with PCP and he is willing to f/u OP. Using dispatcher chief oil discussed that potassium to be replaced today and if stable may continue with Op K+ replacement and Insulin. Will send in affordable insulin to [facility]. Pt denies any assistance with cost of meds at this time. He denies any further needs. - Vitals & Intake/Output Vital Signs: Vital Signs Temperature 97.1 F 10/16/23 07:37 Pulse Rate 77 10/16/23 07:37 Respiratory Rate 16 10/16/23 07:37 Blood Pressure 118/74 10/16/23 07:37 O2 Sat by Pulse Oximetry 98 10/16/23 07:37 Intake & Output: Intake & Output 10/13/23 10/14/23 10/15/23 10/16/23 11:59 11:59 11:59 11:59 Intake Total 1320 3284 1610 Balance 1320 3284 1610 Weight 85.9 kg 85.9 kg 86 kg 84.2 kg - Lab Result Diagrams: 10/16/23 04:25 10/16/23 04:25 Lab Results-Last 24 Hrs: Lab Results-Last 24 Hours 10/15/23 10/15/23 10/15/23 Range/Units 11:58 15:45 16:37 WBC (4.0-10.5) x10^3/uL RBC (4.1-5.6) x10^6/uL Hgb (12.5-18.0) g/dL Hct (42-50) % MCV (78-100) fL MCH (26-32) pg MCHC (32-36) g/dL RDW (11.5-14.0) % Plt Count (150-450) x10^3/uL MPV (7.5-11.0) fL Gran % (36.0-66.0) % Immature Gran % (Auto) (0.00-0.4) % Nucleat RBC Rel Count (0.00-0.1) % Eos # (Auto) (0-0.5) x10^3/uL Immature Gran # (Auto) (0.00-0.03) x10^3u/L Absolute Lymphs (auto) (1.0-4.6) x10^3/uL Absolute Monos (auto) (0.0-1.3) x10^3/uL Absolute Nucleated RBC (0.00-0.01) x10^3u/L Lymphocytes % (24.0-44.0) % Monocytes % (0.0-12.0) % Eosinophils % (0.00-5.0) % Basophils % (0.0-0.4) % Absolute Granulocytes (1.4-6.9) x10^3/uL Basophils # (0-0.4) x10^3/uL Sodium (135-145) mmol/L Potassium 3.5 D (3.5-5.1) mmol/L Chloride (98-107) mmol/L Carbon Dioxide (22-30) mmol/L Anion Gap (5-15) MEQ/L BUN (9-20) mg/dL Creatinine (0.66-1.25) mg/dL Estimated GFR ML/MIN Glucose (74-106) mg/dL POC Glucometer 317 H 266 H (74 to 106) mg/dL Calcium (8.4-10.2) mg/dL Magnesium (1.6-2.3) mg/dL Total Bilirubin (0.2-1.3) mg/dL AST (17-59) U/L ALT (0-50) U/L Alkaline Phosphatase (38-126) U/L Serum Total Protein (6.3-8.2) g/dL Albumin (3.5-5.0) g/dL 10/15/23 10/15/23 10/16/23 Range/Units 20:09 23:53 04:14 WBC (4.0-10.5) x10^3/uL RBC (4.1-5.6) x10^6/uL Hgb (12.5-18.0) g/dL Hct (42-50) % MCV (78-100) fL MCH (26-32) pg MCHC (32-36) g/dL RDW (11.5-14.0) % Plt Count (150-450) x10^3/uL MPV (7.5-11.0) fL Gran % (36.0-66.0) % Immature Gran % (Auto) (0.00-0.4) % Nucleat RBC Rel Count (0.00-0.1) % Eos # (Auto) (0-0.5) x10^3/uL Immature Gran # (Auto) (0.00-0.03) x10^3u/L Absolute Lymphs (auto) (1.0-4.6) x10^3/uL Absolute Monos (auto) (0.0-1.3) x10^3/uL Absolute Nucleated RBC (0.00-0.01) x10^3u/L Lymphocytes % (24.0-44.0) % Monocytes % (0.0-12.0) % Eosinophils % (0.00-5.0) % Basophils % (0.0-0.4) % Absolute Granulocytes (1.4-6.9) x10^3/uL Basophils # (0-0.4) x10^3/uL Sodium (135-145) mmol/L Potassium (3.5-5.1) mmol/L Chloride (98-107) mmol/L Carbon Dioxide (22-30) mmol/L Anion Gap (5-15) MEQ/L BUN (9-20) mg/dL Creatinine (0.66-1.25) mg/dL Estimated GFR ML/MIN Glucose (74-106) mg/dL POC Glucometer 331 H 298 H 232 H (74 to 106) mg/dL Calcium (8.4-10.2) mg/dL Magnesium (1.6-2.3) mg/dL Total Bilirubin (0.2-1.3) mg/dL AST (17-59) U/L ALT (0-50) U/L Alkaline Phosphatase (38-126) U/L Serum Total Protein (6.3-8.2) g/dL Albumin (3.5-5.0) g/dL 10/16/23 10/16/23 10/16/23 Range/Units 04:25 04:25 04:25 WBC 7.5 (4.0-10.5) x10^3/uL RBC 5.14 (4.1-5.6) x10^6/uL Hgb 14.4 (12.5-18.0) g/dL Hct 41.8 L (42-50) % MCV 81.3 (78-100) fL MCH 28.0 (26-32) pg MCHC 34.4 (32-36) g/dL RDW 13.8 (11.5-14.0) % Plt Count 212 (150-450) x10^3/uL MPV 11.6 H (7.5-11.0) fL Gran % 55.7 (36.0-66.0) % Immature Gran % (Auto) 0.7 H (0.00-0.4) % Nucleat RBC Rel Count 0.0 (0.00-0.1) % Eos # (Auto) 0.11 (0-0.5) x10^3/uL Immature Gran # (Auto) 0.05 H (0.00-0.03) x10^3u/L Absolute Lymphs (auto) 2.41 (1.0-4.6) x10^3/uL Absolute Monos (auto) 0.69 (0.0-1.3) x10^3/uL Absolute Nucleated RBC 0.00 (0.00-0.01) x10^3u/L Lymphocytes % 32.2 (24.0-44.0) % Monocytes % 9.2 (0.0-12.0) % Eosinophils % 1.5 (0.00-5.0) % Basophils % 0.7 (0.0-0.4) % Absolute Granulocytes 4.18 (1.4-6.9) x10^3/uL Basophils # 0.05 (0-0.4) x10^3/uL Sodium 136 (135-145) mmol/L Potassium 2.9 L* (3.5-5.1) mmol/L Chloride 99 (98-107) mmol/L Carbon Dioxide 23 (22-30) mmol/L Anion Gap 16.6 H (5-15) MEQ/L BUN 13 (9-20) mg/dL Creatinine 0.72 (0.66-1.25) mg/dL Estimated GFR 130.8 ML/MIN Glucose 228 H (74-106) mg/dL POC Glucometer (74 to 106) mg/dL Calcium 8.9 (8.4-10.2) mg/dL Magnesium 1.9 (1.6-2.3) mg/dL Total Bilirubin 0.90 (0.2-1.3) mg/dL AST 28 (17-59) U/L ALT 51 H (0-50) U/L Alkaline Phosphatase 132 H (38-126) U/L Serum Total Protein 6.8 (6.3-8.2) g/dL Albumin 3.8 (3.5-5.0) g/dL // Range/Units 07:35 WBC (4.0-10.5) x10^3/uL RBC (4.1-5.6) x10^6/uL Hgb (12.5-18.0) g/dL Hct (42-50) % MCV (78-100) fL MCH (26-32) pg MCHC (32-36) g/dL RDW (11.5-14.0) % Plt Count (150-450) x10^3/uL MPV (7.5-11.0) fL Gran % (36.0-66.0) % Immature Gran % (Auto) (0.00-0.4) % Nucleat RBC Rel Count (0.00-0.1) % Eos # (Auto) (0-0.5) x10^3/uL Immature Gran # (Auto) (0.00-0.03) x10^3u/L Absolute Lymphs (auto) (1.0-4.6) x10^3/uL Absolute Monos (auto) (0.0-1.3) x10^3/uL Absolute Nucleated RBC (0.00-0.01) x10^3u/L Lymphocytes % (24.0-44.0) % Monocytes % (0.0-12.0) % Eosinophils % (0.00-5.0) % Basophils % (0.0-0.4) % Absolute Granulocytes (1.4-6.9) x10^3/uL Basophils # (0-0.4) x10^3/uL Sodium (135-145) mmol/L Potassium (3.5-5.1) mmol/L Chloride (98-107) mmol/L Carbon Dioxide (22-30) mmol/L Anion Gap (5-15) MEQ/L BUN (9-20) mg/dL Creatinine (0.66-1.25) mg/dL Estimated GFR ML/MIN Glucose (74-106) mg/dL POC Glucometer 226 H (74 to 106) mg/dL Calcium (8.4-10.2) mg/dL Magnesium (1.6-2.3) mg/dL Total Bilirubin (0.2-1.3) mg/dL AST (17-59) U/L ALT (0-50) U/L Alkaline Phosphatase (38-126) U/L Serum Total Protein (6.3-8.2) g/dL Albumin (3.5-5.0) g/dL Micro Results-Entire Visit: Microbiology 10/13/23 11:29 Urine Culture - Final Urine, Void NO GROWTH Accuchecks Date 10/16/23 Date 10/15/23 Date 10/15/23 Time 07:37 Time 17:07 Time 12:19 - Procedures and Test Procedures and Tests throughout Hospitalization: Therapy Orders & Screens 10/13/23 20:49 Smoking Cessation Education ONCE Comment: Diagnosis: Hyperglycemia Smoking Status: Current every day smoker How long have you smoked: 2 years Do you dip or chew tobacco: No Discharge Exam General Appearance: no apparent distress, alert Neurologic Exam: alert, oriented x 3, cooperative, normal mood/affect, nml cerebellar function, sensation nml, No motor deficits Eye Exam: PERRL, EOMI, eyes nml inspection Ears, Nose, Throat Exam: normal ENT inspection, pharynx normal, moist mucous membranes Neck Exam: normal inspection, non-tender, supple, full range of motion Respiratory Exam: normal breath sounds, lungs clear, No respiratory distress Cardiovascular Exam: regular rate/rhythm, normal heart sounds Gastrointestinal/Abdomen Exam: soft, No tenderness, No mass Male Genitalia Exam: deferred Rectal Exam: deferred Back Exam: normal inspection, normal range of motion, No CVA tenderness, No vertebral tenderness Extremity Exam: normal inspection, normal range of motion Skin Exam: normal color, warm, dry Final Diagnosis/Problem List - Final Discharge Diagnosis/Problem (1) DKA (diabetic ketoacidosis) Current Visit: Yes Status: Acute Assessment & Plan: - resolved Code(s): E11.10 - TYPE 2 DIABETES MELLITUS WITH KETOACIDOSIS WITHOUT COMA (2) DMII (diabetes mellitus, type 2) Current Visit: Yes Status: Acute Assessment & Plan: - uncontrolled - Pt explained + DM since childhood- most likely type I vs. type II - A1C 13.6 - Non-compliance - Will need affordable meds at [facility] at d/c - accuchecks Ac/hs, lantus, humalog s/s - Discussed compliance with meds to prevent readmission and prevent overall negative juan miguel effects (3) Hypokalemia Current Visit: Yes Status: Acute Assessment & Plan: - K+ 2.9- replaced- will recheck this afternoon Code(s): E87.6 - HYPOKALEMIA (4) Dehydration Current Visit: No Status: Acute Assessment & Plan: - improved- 2:2 DKA - anion gap 16.6 - IVF with K+ Code(s): E86.0 - DEHYDRATION - Discharge Discharge Date: 10/16/23 Disposition: Home, Self-Care Condition: Stable Prescriptions: New Insulin Aspart [NovoLOG Insulin] 1 unit SQ TID 30 Days #1 unit Insulin Glargine [Lantus Insulin] 1 unit SQ BID 30 Days #10 ml Potassium Chloride Tab* [Klor Con] 20 meq PO BID 5 Days #20 tablet Additional Instructions: THERE IS A DISCOUNT[facility] IN [facility]- YOU CAN CALL THEM AT [phone] IF YOU WANT TO SEE ABOUT GETTING AN APPOINTMENT THERE Follow up with: ОЛЬГА GILLESPIE NP [NON-STAFF PHY W/O PRIVILEGES] - 10/17/23 10:30 am
[2023-10-16 11:40] VITALS: BP 130/71; RESP 17; TEMP 97.6; O2SAT 96
[2023-10-16 12:17] LABS: ANION GAP 18.3 MEQ/L (5-15); Potassium 3.3 mmol/L (3.5-5.1)
[2023-10-16] MEDS ORDERED: Sterile H2O 10 ml IJ ONE (13:56)
== END 2023-10-16 13:59 | disposition home or self-care (01) ==
LOC: ED 10:32 → MED SURG 20:00
PROVIDERS: ADMIT Internal Medicine; ATTEND Internal Medicine
DX: E11.10 Type 2 diabetes mellitus with ketoacidosis without coma (principal); E87.6 Hypokalemia; E86.0 Dehydration; F17.200 Nicotine dependence, unspecified, uncomplicated; Z91.148 Patient's other noncompliance with medication regimen for other reason; Z20.828 Contact with and (suspected) exposure to other viral communicable diseases; Z59.10 Inadequate housing, unspecified
CPT/HCPCS: 36000; 36415; 80047; 80048; 80051; 80053; 81001; 82077; 82805; 82947; 83036; 83605; 83735; 84132; 85025; 85027; 87086; 93005; 94760; 96374; 96375; 96376; 99285; 99291; Q3014; 93268; G0378; J1815; J1817; J3480; A9270-GY